=== PATIENT | female | born 1935 | race Caucasian/White ===

== ENCOUNTER → 2021-07-14 | Emergency (ER) | payer MEDICARE ==
--- NOTE | 2021-07-14 17:19 | XR ---
2 view chest x-ray HISTORY: Covid positive, cough 2 views the chest, no comparisons There is no evident airspace disease, pneumothorax, or pleural effusion. Arthropathy is noted within the shoulders. Cardiomediastinal silhouette within normal limits accounting for rotation. IMPRESSION: No acute cardiopulmonary disease. Follow-up as indicated.
[2021-07-14 19:00] LABS: ALT 32 U/L (4-34); AST 56 U/L (14-36); African American GFR (CKD) >90 (>60 ml/min/1.73 sqM); Albumin 3.4 g/dL (3.5-5.0); Alkaline Phosphatase 104 U/L (38-126); Anion Gap 9 mmol/L; Blood Urea Nitrogen 10 mg/dL (7-17); Calcium 8.4 mg/dL (8.4-10.2); Carbon Dioxide 22 mmol/L (22-30); Chloride 98 mmol/L (98-107); Glucose 121 mg/dL (74-99); Magnesium 1.7 mg/dL (1.6-2.3); Non-African American GFR(CKD) 86 (>60 ml/min/1.73 sqM); Potassium 4.8 mmol/L (3.5-5.1); Sodium 129 mmol/L (137-145); Total Bilirubin 0.6 mg/dL (0.2-1.3)
[2021-07-14 19:03] LABS: Basophils % (A) 0 %; Eosinophils % (A) 1 %; HCT 34.1 % (34.0-46.0); HGB 11.2 gm/dL (11.4-16.0); Lymphocytes # (A) 1.1 k/uL (1.0-4.8); Lymphocytes % (A) 14 %; MCH 28.1 pg (25.0-35.0); MCHC 32.7 g/dL (31.0-37.0); MCV 85.8 fL (80.0-100.0); Mean Platelet Volume 7.4; Monocytes # (A) 0.6 k/uL (0-1.0); Monocytes % (A) 8 %; Neutrophils # (A) 5.7 k/uL (1.3-7.7); Neutrophils % (A) 75 %; Platelet Count 392 k/uL (150-450); RBC 3.97 m/uL (3.80-5.40); RDW 14.5 % (11.5-15.5); WBC 7.6 k/uL (3.8-10.6)
== END ==
LOC: EC 12:00
DX: U07.1 COVID-19 (principal); R19.7 Diarrhea, unspecified; I10 Essential (primary) hypertension; E11.9 Type 2 diabetes mellitus without complications
CPT/HCPCS: 36415; 71046; 80053; 83735; 85025; 99284

== ENCOUNTER 2021-09-04 09:06 | Emergency (ER) | payer MEDICARE ==
[2021-09-04 09:19] VITALS: BP 159/77; PULSE 88; RESP 18; TEMP 97.9
[2021-09-04] MEDS ORDERED: KETOROLAC 15 MG/ML 1 ML VIAL IVP STA (09:54)
[2021-09-04] MEDS ORDERED: HYDROmorphone 0.5 MG/0.5 ML SYRINGE IVP STA ×2 (09:55→11:35)
--- NOTE | 2021-09-04 09:58 | ED ---
General Adult HPI - General Chief complaint: Extremity Problem,Nontraumatic Stated complaint: R arm & hand pain Time Seen by Provider: 09/04/21 09:25 Source: patient, family, RN notes reviewed, old records reviewed Mode of arrival: wheelchair Limitations: no limitations - History of Present Illness Initial comments: This is an 86-year-old female who presents emergency Department complaining that yesterday her right arm started hurting particularly in the wrist and the elbow area but also the upper arm. Patient states she wasn't doing anything at the time she denies any injury or trauma. Patient states that pain is severe at times. Patient states the pain does fluctuate never is gone away but it does get much less severe at times. Patient states movement definitely seems to increase the pain there is no area of erythema or swelling. Patient denies having had this experience in the past. Patient is a diabetic. Patient has no neck pain. Patient denies any chest pain difficulty breathing shortness of breath. Nursing notes indicated she had pain bilateral hands and arms however patient denied that to me. - Related Data Home Medications Medication Instructions Recorded Confirmed Acetaminophen [Tylenol] 1,000 mg PO Q4H PRN 07/14/21 07/14/21 Atorvastatin [Lipitor] 40 mg PO DAILY 07/14/21 07/14/21 Diclofenac Sodium [Voltaren] 75 mg PO BID 07/14/21 07/14/21 Glucosamine Sulfate 500 mg PO DAILY 07/14/21 07/14/21 Molnupiravir [Molnupiravir (Eua)] 800 mg PO BID 07/14/21 07/14/21 Multivitamins, Thera [Multivitamin 1 tab PO DAILY 07/14/21 07/14/21 (formulary)] Omeprazole [PriLOSEC] 20 mg PO DAILY 07/14/21 07/14/21 metFORMIN HCL ER [Glucophage XR] 500 mg PO HS 07/14/21 07/14/21 ramipriL [Ramipril] 10 mg PO DAILY 07/14/21 07/14/21 Allergies Allergy/AdvReac Type Severity Reaction Status Date / Time No Known Allergies Allergy Verified 09/04/21 09:18 Review of Systems ROS Statement: Those systems with pertinent positive or pertinent negative responses have been documented in the HPI. ROS Other: All systems not noted in ROS Statement are negative. Past Medical History Past Medical History: Diabetes Mellitus, GERD/Reflux, Hyperlipidemia, Hypertension Additional Past Medical History / Comment(s): guilian barre History of Any Multi-Drug Resistant Organisms: None Reported Past Surgical History: Hysterectomy Past Psychological History: No Psychological Hx Reported Smoking Status: Never smoker Past Alcohol Use History: None Reported Past Drug Use History: None Reported General Exam - General Exam Comments Initial Comments: GENERAL: Patient is well-developed and well-nourished. Patient is nontoxic and well- hydrated and is in moderate distress. ENT: Neck is soft and supple. No significant lymphadenopathy is noted. Oropharynx is clear. Moist mucous membranes. Neck has full range of motion without eliciting any pain. EYES: The sclera were anicteric and conjunctiva were pink and moist. Extraocular movements were intact and pupils were equal round and reactive to light. Eyelids were unremarkable. PULMONARY: Unlabored respirations. Good breath sounds bilaterally. No audible rales rhonchi or wheezing was noted. CARDIOVASCULAR: There is a regular rate and rhythm without any murmurs gallops or rubs. ABDOMEN: Soft and nontender with normal bowel sounds. SKIN: Skin is clear with no lesions or rashes and otherwise unremarkable. NEUROLOGIC: Patient is alert and oriented x3. Cranial nerves II through XII are grossly intact. Motor and sensory are also intact. Normal speech, volume and content. Symmetrical smile. Cerebellar exam grossly intact. MUSCULOSKELETAL: Patient has tenderness in the lateral and medial aspect of right wrist also in the region of the elbow medially more than laterally and mid upper arm. LYMPHATICS: No significant lymphadenopathy is noted PSYCHIATRIC: Normal psychiatric evaluation. Limitations: no limitations Course Vital Signs 09/04/21 09:13 Temperature 97.9 F Pulse Rate 88 Respiratory 18 Rate Blood Pressure 159/77 O2 Sat by Pulse 96 Oximetry Procedures - Orthopedic Splinting/Casting Injury #1 Side: right Upper Extremity Injury Location: short arm Upper Extremity Immobilizer: posterior splint Medical Decision Making - Medical Decision Making EKG shows sinus rhythm at 83 bpm TX interval is 160 QRS is 94 QT interval 350 QTC is 390. Patient's EKG shows no ST segment elevation or depression. X-ray of the elbow shows no acute abnormality. X-ray of the wrist shows a second proximal metacarpal fracture I put a splint to the patient that seemed to ease her pain considerably. [facility]. - Lab Data Result diagrams: 09/04/21 10:13 09/04/21 10:13 Lab Results 09/04/21 09/04/21 09/04/21 Range/Units 10:13 10:13 10:13 WBC 12.7 H (3.8-10.6) k/uL RBC 3.93 (3.80-5.40) m/uL Hgb 10.8 L (11.4-16.0) gm/dL Hct 33.3 L (34.0-46.0) % MCV 84.7 (80.0-100.0) fL MCH 27.4 (25.0-35.0) pg MCHC 32.4 (31.0-37.0) g/dL RDW 14.8 (11.5-15.5) % Plt Count 383 (150-450) k/uL MPV 6.7 Neutrophils % 85 % Lymphocytes % 8 % Monocytes % 5 % Eosinophils % 1 % Basophils % 0 % Neutrophils # 10.8 H (1.3-7.7) k/uL Lymphocytes # 1.0 (1.0-4.8) k/uL Monocytes # 0.6 (0-1.0) k/uL Eosinophils # 0.1 (0-0.7) k/uL Basophils # 0.0 (0-0.2) k/uL Sodium 130 L (137-145) mmol/L Potassium 4.3 (3.5-5.1) mmol/L Chloride 98 (98-107) mmol/L Carbon Dioxide 23 (22-30) mmol/L Anion Gap 9 mmol/L BUN 18 H (7-17) mg/dL Creatinine 0.63 (0.52-1.04) mg/dL Est GFR (CKD-EPI)AfAm >90 (>60 ml/min/1.73 sqM) Est GFR (CKD-EPI)NonAf 81 (>60 ml/min/1.73 sqM) Glucose 139 H (74-99) mg/dL Uric Acid 5.1 (3.7-7.4) mg/dL Calcium 9.1 (8.4-10.2) mg/dL Total Bilirubin 0.7 (0.2-1.3) mg/dL AST 122 H (14-36) U/L ALT 68 H (4-34) U/L Alkaline Phosphatase 120 (38-126) U/L Creatine Kinase 35 (30-135) U/L C-Reactive Protein 6.3 H (<1.0) mg/dL Total Protein 6.6 (6.3-8.2) g/dL Albumin 3.8 (3.5-5.0) g/dL Disposition Clinical Impression: Metacarpal bone fracture Disposition: HOME SELF-CARE Condition: Good Instructions (If sedation given, give patient instructions): Hand Fracture (ED) Additional Instructions: Patient should follow-up with orthopedics tomorrow Patient can take Tylenol and Motrin when necessary for pain Is patient prescribed a controlled substance at d/c from ED?: No Referrals: Essence Valencia DO [Doctor of Osteopathic Medicine] - 09/05/21 Time of Disposition: 14:14
[2021-09-04 10:21] LABS: Basophils % (A) 0 %; Eosinophils # (A) 0.1 k/uL (0-0.7); Eosinophils % (A) 1 %; HCT 33.3 % (34.0-46.0); HGB 10.8 gm/dL (11.4-16.0); Lymphocytes % (A) 8 %; MCH 27.4 pg (25.0-35.0); MCHC 32.4 g/dL (31.0-37.0); MCV 84.7 fL (80.0-100.0); Mean Platelet Volume 6.7; Monocytes # (A) 0.6 k/uL (0-1.0); Monocytes % (A) 5 %; Neutrophils # (A) 10.8 k/uL (1.3-7.7); Neutrophils % (A) 85 %; Platelet Count 383 k/uL (150-450); RBC 3.93 m/uL (3.80-5.40); RDW 14.8 % (11.5-15.5); WBC 12.7 k/uL (3.8-10.6)
[2021-09-04 10:32] LABS: ALT 68 U/L (4-34); AST 122 U/L (14-36); African American GFR (CKD) >90 (>60 ml/min/1.73 sqM); Albumin 3.8 g/dL (3.5-5.0); Alkaline Phosphatase 120 U/L (38-126); Anion Gap 9 mmol/L; Blood Urea Nitrogen 18 mg/dL (7-17); C Reactive Protein 6.3 mg/dL (<1.0); Calcium 9.1 mg/dL (8.4-10.2); Carbon Dioxide 23 mmol/L (22-30); Chloride 98 mmol/L (98-107); Creatine Kinase 35 U/L (30-135); Glucose 139 mg/dL (74-99); Non-African American GFR(CKD) 81 (>60 ml/min/1.73 sqM); Potassium 4.3 mmol/L (3.5-5.1); Sodium 130 mmol/L (137-145); Total Bilirubin 0.7 mg/dL (0.2-1.3); Total Protein 6.6 g/dL (6.3-8.2)
--- NOTE | 2021-09-04 11:31 | XR ---
EXAMINATION TYPE: XR wrist complete RT DATE OF EXAM: 09/04/2021 CLINICAL HISTORY: pain TECHNIQUE: Frontal, lateral and oblique images of the right wrist are obtained. COMPARISON: None. FINDINGS: Cortical lucency noted at the base of the second metacarpal may reflect fracture. Correlate clinicall y point tenderness. Advanced degenerative change first carpometacarpal joint with mild bony sclerosis and collapse. IMPRESSION: As above
--- NOTE | 2021-09-04 11:32 | XR ---
EXAMINATION TYPE: XR elbow complete RT DATE OF EXAM: 09/04/2021 CLINICAL HISTORY: pain TECHNIQUE: Frontal, lateral and oblique images of the right elbow are obtained. COMPARISON: None. FINDINGS: There is no acute fracture/dislocation evident of the elbow. Prominence of the anterior fa t pad. No evidence for pathologic posterior fat pad. Advanced degenerative change with the bony spurring and loose bodies noted. IMPRESSION: There is no acute fracture or dislocation of the elbow. ICD 10 NO FRACTURE, INITIAL EVALUATION
== END 2021-09-04 14:37 | disposition home or self-care (01) ==
LOC: EC 09:06
DX: S62.310A Displaced fracture of base of second metacarpal bone, right hand, initial encounter for closed fracture (principal); E11.9 Type 2 diabetes mellitus without complications; K21.9 Gastro-esophageal reflux disease without esophagitis; E78.5 Hyperlipidemia, unspecified; I10 Essential (primary) hypertension; Z79.84 Long term (current) use of oral hypoglycemic drugs; Z79.899 Other long term (current) drug therapy; X58.XXXA Exposure to other specified factors, initial encounter
CPT/HCPCS: 36415; 93005; 80053; 82550; 84550; 85025; 86140; 73080; 73110; 29125; 99284; 96374; 96376; 96375; J1885; J1170

== ENCOUNTER → 2021-10-17 | Outpatient (CLI) | payer MEDICARE ==
[2021-10-17 14:04] LABS: African American GFR (CKD) >90 (>60 ml/min/1.73 sqM); Blood Urea Nitrogen 10 mg/dL (7-17); Non-African American GFR(CKD) 87 (>60 ml/min/1.73 sqM)
--- NOTE | 2021-10-17 15:38 | CT ---
EXAMINATION TYPE: CT ChestAbdPelvis w con DATE OF EXAM: 10/17/2021 COMPARISON: None HISTORY: R63.[address] DLP: 1246 mGycm CONTRAST: CT scan of the chest, abdomen and pelvis is performed with Oral Contrast and with IV Contrast, patien t injected with 100ml mL of Isovue 300. CT Chest: LUNGS: The lungs are clear and free of infiltrate or atelectasis. No pulmonary nodule or mass is det ected. No pleural effusion or CT evidence of interstitial lung disease. MEDIASTINUM: Thoracic aorta is of normal caliber. The heart is not enlarged. No evidence for media stinal mass or adenopathy. HILAR STRUCTURES: No evidence for mass. No hilar adenopathy is appreciated. OTHER: No significant abnormality. CONTRAST CT ABDOMEN AND PELVIS FINDINGS: LIVER/GB: No calcified gallstones. No space occupying hepatic lesion. Biliary tree is of normal ca liber. PANCREAS: No inflammation. No distinct mass. SPLEEN: No splenic enlargement. No lesion seen. ADRENALS: No nodule. No thickening. KIDNEYS/BLADDER: No hydronephrosis. No nephrolithiasis. No distinct renal mass. BOWEL: Large anterior abdominal wall hernia to the left of midline containing multiple loops of small and large bowel. No evidence for strangulation at this time. Normal appendix. Normal bowel caliber. No inflammation. GENITAL ORGANS: No gross abnormality. LYMPH NODES: No greater than 1cm abdominal or pelvic lymph nodes are appreciated. AORTA: No significant abnormality. OSSEOUS STRUCTURES: No significant abnormality is seen. OTHER: Bilateral hip prostheses are in place resulting in streak artifact throughout the pelvis. IMPRESSION: 1. Large anterior abdominal wall hernia to the left of midline containing multiple loops of small and large bowel. No evidence for strangulation at this time.
== END | disposition home or self-care (01) ==
LOC: RADCTMAIN 13:11
PROVIDERS: ATTEND Internal Medicine
DX: K46.9 Unspecified abdominal hernia without obstruction or gangrene (principal); D64.9 Anemia, unspecified; R94.5 Abnormal results of liver function studies; R63.4 Abnormal weight loss
CPT/HCPCS: 82565; 84520; 71260; 74177; 36415; Q9967

== ENCOUNTER → 2021-11-09 | Outpatient (CLI) | payer MEDICARE ==
--- NOTE | 2021-11-09 14:17 | BD ---
EXAMINATION TYPE: Axial Bone Density DATE OF EXAM: 11/09/2021 COMPARISON: FIRST DEXA AT [facility] CLINICAL HISTORY: 86 years year old Female. ICD-10 CODE: M89.9 bone disorder Height: 68IN Weight: 190 FRAX RISK QUESTIONS: Secondary Osteoporosis: RISK FACTORS HISTORY OF: Surgery to Hip(right): YES, PT UNSURE IF SURGERY TO LEFT HIP When: PT CAN'T REMEMBER WHEN Family History of Osteoporosis: YES Active: NO Postmenopausal woman: YES Lost more than 2 inches in height since high school: YES MEDICATIONS: Additional Medications: PT UNSURE ABOUT ANY MEDS Additional History: EXAM MEASUREMENTS: Bone mineral densitometry was performed using the [employer]. Bone mineral density as measured about the Lumbar spine is: ----- L1-L4(G/cm2): 1.486 T Score Values are as follows: ----- L1: 0.6 ----- L2: 3.1 ----- L3: 3.7 ----- L4: 3.3 ----- L1-L4: 2.5 FIRST DEXA AT [facility] Bone mineral density about the L Wrist (g/cm2): 0.654 T Score values are as follows: -----Dist. R+U: 1.0 -----Prox. R+U: -0.4 -----Radius total: -0.1 IMPRESSION: Normal (Values between +1 and -1 indicate normal bone mass). Consider repeating this study in 5 year s or sooner if there is some new clinical indication. NOTE: T-SCORE=SD OF THE YOUNG ADULT MEAN.
== END | disposition home or self-care (01) ==
LOC: RADBDWWP 12:59
PROVIDERS: ATTEND Internal Medicine
DX: M89.9 Disorder of bone, unspecified (principal); Z78.0 Asymptomatic menopausal state
CPT/HCPCS: 77080

== ENCOUNTER 2022-06-27 17:56 | Inpatient (IN) | payer MEDICARE ==
[2022-06-27] MEDS ORDERED: LIDOCAINE 5% PATCH TOPICAL STA (18:30)
[2022-06-27] MEDS ORDERED: HYDROcodone/APAP 7.5-325MG 1 EACH TAB PO ONE (19:10)
--- NOTE | 2022-06-27 19:19 | XR ---
EXAMINATION TYPE: XR lumbar spine 2 or 3V DATE OF EXAM: 06/27/2022 COMPARISON: None HISTORY: Back pain TECHNIQUE: 3 view lumbar spine FINDINGS: There are 5 lumbar-type vertebral bodies. Pedicles are intact. Scoliosis is present. There is straightening of the lumbar spine in the sagittal plane. There is loss of disc height present. Spo ndylolysis is present. Follow-up MRI can be performed as clinically indicated IMPRESSION: 1. Scoliosis with degenerative disc changes.
[2022-06-27] MEDS ORDERED: KETOROLAC 15 MG/ML 1 ML VIAL IM STA (19:44)
[2022-06-27] MEDS ORDERED: MORPHINE SULFATE 2 MG/ML SYRINGE IVP ONE (20:23)
[2022-06-27] MEDS ORDERED: methylPREDNISolone SOD SUCCI 125 MG/2 ML VIAL IV STA (20:23)
[2022-06-27] MEDS ORDERED: HYDROmorphone 0.5 MG/0.5 ML SYRINGE IVP STA (20:28)
[2022-06-27 21:08] LABS: Anisocytosis Slight; Basophils % (A) 0 %; Eosinophils # (A) 0.1 k/uL (0-0.7); Eosinophils % (A) 1 %; HCT 27.9 % (34.0-46.0); HGB 8.3 gm/dL (11.4-16.0); Hypochromasia Moderate; Lymphocytes # (A) 1.7 k/uL (1.0-4.8); Lymphocytes % (A) 16 %; MCH 21.1 pg (25.0-35.0); MCHC 29.7 g/dL (31.0-37.0); MCV 70.9 fL (80.0-100.0); Mean Platelet Volume 6.6; Microcytosis Marked; Monocytes # (A) 0.6 k/uL (0-1.0); Monocytes % (A) 5 %; Neutrophils # (A) 7.9 k/uL (1.3-7.7); Neutrophils % (A) 75 %; Platelet Count 406 k/uL (150-450); RBC 3.93 m/uL (3.80-5.40); RDW 17.7 % (11.5-15.5); WBC 10.5 k/uL (3.8-10.6)
[2022-06-27 21:19] LABS: ALT 18 U/L (4-34); AST 51 U/L (14-36); African American GFR (CKD) >90 (>60 ml/min/1.73 sqM); Albumin 3.5 g/dL (3.5-5.0); Alkaline Phosphatase 117 U/L (38-126); Anion Gap 6 mmol/L; Blood Urea Nitrogen 15 mg/dL (7-17); Calcium 8.9 mg/dL (8.4-10.2); Carbon Dioxide 25 mmol/L (22-30); Chloride 96 mmol/L (98-107); Glucose 112 mg/dL (74-99); Non-African American GFR(CKD) 84 (>60 ml/min/1.73 sqM); Potassium 4.5 mmol/L (3.5-5.1); Sodium 127 mmol/L (137-145); Total Bilirubin 0.5 mg/dL (0.2-1.3)
--- NOTE | 2022-06-27 21:39 | ED ---
General Adult HPI - General Chief complaint: Back Pain/Injury Stated complaint: Back pain Time Seen by Provider: 06/27/22 18:17 Source: patient, RN notes reviewed Mode of arrival: wheelchair Limitations: no limitations - History of Present Illness Initial comments: 87-year-old female presents emergency Department with chief complaint of back pain. Patient states that it started 2-3 days ago and has progressively gotten worse. She has a history of back pain but has never experienced back pain this severe. Patient states that she is having a difficult time walking at home. Patient states that she has not taken anything at home for pain. Denies saddle anesthesia, numbness, tingling down her legs. Denies urinary retention, loss of bowel and bladder function. - Related Data Home Medications Medication Instructions Recorded Confirmed Acetaminophen [Tylenol] 1,000 mg PO Q4H PRN 07/14/21 07/14/21 Atorvastatin [Lipitor] 40 mg PO DAILY 07/14/21 07/14/21 Diclofenac Sodium [Voltaren] 75 mg PO BID 07/14/21 07/14/21 Glucosamine Sulfate 500 mg PO DAILY 07/14/21 07/14/21 Multivitamins, Thera [Multivitamin 1 tab PO DAILY 07/14/21 07/14/21 (formulary)] Omeprazole [PriLOSEC] 20 mg PO DAILY 07/14/21 07/14/21 metFORMIN HCL ER [Glucophage XR] 500 mg PO HS 07/14/21 07/14/21 ramipriL [Ramipril] 10 mg PO DAILY 07/14/21 07/14/21 Allergies Allergy/AdvReac Type Severity Reaction Status Date / Time No Known Allergies Allergy Verified 06/27/22 22:23 Review of Systems ROS Statement: Those systems with pertinent positive or pertinent negative responses have been documented in the HPI. ROS Other: All systems not noted in ROS Statement are negative. Past Medical History Past Medical History: Diabetes Mellitus, GERD/Reflux, Hyperlipidemia, Hypertension Additional Past Medical History / Comment(s): guilian barre History of Any Multi-Drug Resistant Organisms: None Reported Past Surgical History: Hysterectomy Past Psychological History: No Psychological Hx Reported Smoking Status: Never smoker Past Alcohol Use History: None Reported Past Drug Use History: None Reported General Exam Limitations: no limitations General appearance: alert, in no apparent distress Head exam: Present: atraumatic, normocephalic, normal inspection Eye exam: Present: normal appearance ENT exam: Present: normal exam, mucous membranes moist Neck exam: Present: normal inspection, full ROM. Absent: tenderness, meningismus, lymphadenopathy Respiratory exam: Present: normal lung sounds bilaterally. Absent: respiratory distress, wheezes, rales, rhonchi, stridor Cardiovascular Exam: Present: regular rate, normal rhythm, normal heart sounds. Absent: systolic murmur, diastolic murmur, rubs, gallop, clicks GI/Abdominal exam: Present: soft, normal bowel sounds. Absent: distended, tenderness, guarding, rebound, rigid Extremities exam: Present: normal inspection, full ROM, normal capillary refill. Absent: tenderness, pedal edema, joint swelling, calf tenderness Back exam: Present: normal inspection, tenderness (Tenderness palpation over the lumbar spine), paraspinal tenderness, vertebral tenderness. Absent: CVA tenderness (R), CVA tenderness (L) Neurological exam: Present: alert, oriented X3 Psychiatric exam: Present: normal affect, normal mood Skin exam: Present: warm, dry, intact, normal color. Absent: rash Course Vital Signs 06/27/22 06/27/22 06/27/22 17:57 20:13 21:20 Temperature 98.2 F 98.2 F Pulse Rate 82 84 81 Respiratory 18 18 18 Rate Blood Pressure 180/85 179/82 182/78 O2 Sat by Pulse 97 98 97 Oximetry 06/27/22 06/27/22 06/28/22 22:21 22:50 00:00 Temperature Pulse Rate 82 84 80 Respiratory 14 18 18 Rate Blood Pressure 180/74 O2 Sat by Pulse 95 98 97 Oximetry Medical Decision Making - Medical Decision Making Was pt. sent in by a medical professional or institution (, PA, TOBACCO STEMMER MACHINE, urgent care, hospital, or assisted...) When possible be specific @ -No Did you speak to anyone other than the patient for history (EMS, parent, family, police, friend...)? What history was obtained from this source @ -No Did you review nursing and triage notes (agree or disagree)? Why? @ -I reviewed and agree with nursing and triage notes Were old charts reviewed (outside hosp., previous admission, EMS record, old EKG, old radiological studies, urgent care reports/EKG's, assisted records)? Report findings @ -Lab values from prior visits were reviewed and compared to the test obtained today Differential Diagnosis (chest pain, altered mental status, abdominal pain women, abdominal pain men, vaginal bleeding, weakness, fever, dyspnea, syncope, headache, dizziness, GI bleed, back pain, seizure, CVA, palpatations, mental health, musculoskeletal)? @ -Differential Musculoskeletal Muscular strain, contusion, ligament sprain, fracture, arthritis, septic arth ritis, bursitis, cellulitis, muscle spasm, nerve compression, DVT, arterial occlusion, herpes zoster, electrolyte abnormality, tumor.... This is not meant to be in all inclusive list EKG interpreted by me (3pts min.). @ -None X-rays interpreted by me (1pt min.). @ -X-ray lumbar spine showed scoliosis with degenerative disc changes CT interpreted by me (1pt min.). @ -None done U/S interpreted by me (1pt. min.). @ -None done What testing was considered but not performed or refused? (CT, X-rays, U/S, labs)? Why? @ -None What meds were considered but not given or refused? Why? @ -None Did you discuss the management of the patient with other professionals (professionals i.e. , PA, TOBAC[employer] STEMMER MACHINE, lab, RT, psych nurse, forensic social worker, business analytics specialist, teacher, signals officer, test case developer)? Give summary @ -Yes, case was discussed with Dr. Morin who is accepting of the admission Was smoking cessation discussed for >3mins.? @ -No Was critical care preformed (if so, how long)? @ -No Were there social determinants of health that impacted care today? How? (Homelessness, low income, unemployed, alcoholism, drug addiction, transportation, low edu. Level, literacy, decrease access to med. care, [facility], rehab)? @ -No Was there de-escalation of care discussed even if they declined (Discuss DNR or withdrawal of care, Hospice)? DNR status @ -No What co-morbidities impacted this encounter? (DM, HTN, Smoking, COPD, CAD, Cancer, CVA, ARF, Chemo, Hep., AIDS, mental health diagnosis, sleep apnea, morbid obesity)? @ -None Was patient admitted / discharged? Hospital course, mention meds given and route, prescriptions, significant lab abnormalities, going to OR and other pertinent info. @ -Admitted. Patient presented to emergency department chief complaint of low back pain worsening over the past 2 days. Patient has a history of chronic back pain. X-ray was obtained which showed scoliosis with degenerative disc emanuel ges. Patient was given norco 7.5 and a Toradol shot. She stated that this did not help with her pain. IV was started and labs were obtained. Patient was then given 0.5 mg of Dilaudid. Upon reevaluation patient stated that her pain had improved. UA was obtained which showed positive nitrates, large leukocytes, moderate blood; CBC was similar to previous lab work; CMP showed sodium 127 which seems to be chronic issue. The case was discussed with who is accepting of the admission for pain management and treatment of urinary tract infection. Case discussed with my attending, Dr. Araujo Undiagnosed new problem with uncertain prognosis? @ [N] Drug Therapy requiring intensive monitoring for toxicity (Heparin, Nitro, Insu taylor, Cardizem)? @ [N] Were any procedures done? @ [N] Diagnosis/symptom? @ -Back pain] Acute, or Chronic, or Acute on Chronic? @ Acute] Uncomplicated (without systemic symptoms) or Complicated (systemic symptoms)? @ Uncomplicated] Side effects of treatment? @ [N] Exacerbation, Progression, or Severe Exacerbation? @ [N] Poses a threat to life or bodily function? How? (Chest pain, [place], PR, pneumonia, PE, COPD, DKA, ARF, appy, cholecystitis, CVA, Diverticulitis, Homicidal, Suicidal, threat to staff... and all critical care pts) @ - - Lab Data Result diagrams: 06/27/22 20:50 06/27/22 20:50 Lab Results 06/27/22 06/27/22 06/27/22 Range/Units 20:50 20:50 22:00 WBC 10.5 (3.8-10.6) k/uL RBC 3.93 (3.80-5.40) m/uL Hgb 8.3 L (11.4-16.0) gm/dL Hct 27.9 L (34.0-46.0) % MCV 70.9 L (80.0-100.0) fL MCH 21.1 L (25.0-35.0) pg MCHC 29.7 L (31.0-37.0) g/dL RDW 17.7 H (11.5-15.5) % Plt Count 406 (150-450) k/uL MPV 6.6 Neutrophils % 75 % Lymphocytes % 16 % Monocytes % 5 % Eosinophils % 1 % Basophils % 0 % Neutrophils # 7.9 H (1.3-7.7) k/uL Lymphocytes # 1.7 (1.0-4.8) k/uL Monocytes # 0.6 (0-1.0) k/uL Eosinophils # 0.1 (0-0.7) k/uL Basophils # 0.0 (0-0.2) k/uL Hypochromasia Moderate Anisocytosis Slight Microcytosis Marked Sodium 127 L (137-145) mmol/L Potassium 4.5 (3.5-5.1) mmol/L Chloride 96 L (98-107) mmol/L Carbon Dioxide 25 (22-30) mmol/L Anion Gap 6 mmol/L BUN 15 (7-17) mg/dL Creatinine 0.55 (0.52-1.04) mg/dL Est GFR (CKD-EPI)AfAm >90 (>60 ml/min/1.73 sqM) Est GFR (CKD-EPI)NonAf 84 (>60 ml/min/1.73 sqM) Glucose 112 H (74-99) mg/dL Calcium 8.9 (8.4-10.2) mg/dL Total Bilirubin 0.5 (0.2-1.3) mg/dL AST 51 H (14-36) U/L ALT 18 (4-34) U/L Alkaline Phosphatase 117 (38-126) U/L Total Protein 6.0 L (6.3-8.2) g/dL Albumin 3.5 (3.5-5.0) g/dL Urine Color Yellow Urine Appearance Turbid H (Clear) Urine pH 5.5 (5.0-8.0) Ur Specific [place] 1.023 (1.001-1.035) Urine Protein Trace H (Negative) Urine Glucose (UA) Negative (Negative) Urine Ketones 1+ H (Negative) Urine Blood Moderate H (Negative) Urine Nitrite Positive H (Negative) Urine Bilirubin Negative (Negative) Urine Urobilinogen <2.0 (<2.0) mg/dL Ur Leukocyte Esterase Large H (Negative) Urine RBC 46 H (0-5) /hpf Urine WBC >182 H (0-5) /hpf Urine WBC Clumps Occasional H (None) /hpf Ur Squamous Epith Cells 7 H (0-4) /hpf Urine Bacteria Many H (None) /hpf Hyaline Casts 12 H (0-2) /lpf Urine Mucus Few H (None) /hpf Disposition Clinical Impression: Urinary tract infection, Low back pain Disposition: ADMITTED IP TO THIS HOSP Condition: Stable Is patient prescribed a controlled substance at d/c from ED?: No Referrals: Santiago Green MD [Primary Care Provider] - 1-2 days Time of Disposition: 23:26
[2022-06-27] MEDS ORDERED: SODIUM CHLORIDE 0.9% 1,000 ML IV ONE (22:34)
[2022-06-27 22:43] LABS: Appearance,Urine Turbid (Clear); Bacteria,Urine Many /hpf; Bilirubin,Urine Negative (Negative); Blood,Urine Moderate (Negative); Color,Urine Yellow; Glucose,Urine (UA) Negative (Negative); Hyaline Casts,Urine 12 /lpf (0-2); Ketones,Urine 1+ (Negative); Leukocyte Esterase,Urine Large (Negative); Mucus,Urine Few /hpf; Nitrite,Urine Positive (Negative); PH, Urine 5.5 (5.0-8.0); Protein,Urine Trace (Negative); RBC,Urine 46 /hpf (0-5); Specific Gravity,Urine 1.023 (1.001-1.035); Squamous Epithelial Cell,Urine 7 /hpf (0-4); Urobilinogen,Urine <2.0 mg/dL (<2.0); WBC,Urine >182 /hpf (0-5)
[2022-06-27] MEDS ORDERED: ONDANSETRON 4 MG/2 ML VIAL IVP PRN (23:16)
[2022-06-27] MEDS ORDERED: HYDROmorphone 0.5 MG/0.5 ML SYRINGE IVP PRN (23:16)
[2022-06-27] MEDS ORDERED: NALOXONE 0.4 MG/ML 1 ML VIAL IV PRN (23:16)
[2022-06-27] MEDS ORDERED: ACETAMINOPHEN TAB 325 MG TAB PO PRN (23:16)
[2022-06-28] MEDS ORDERED: hydrALAZINE HCL 20 MG/ML 1 ML VIAL IVP STA (00:04)
[2022-06-28] MEDS: SODIUM CHLORIDE 0.9% 1,000 ML IV SCH ×2 (02:48→17:37)
--- NOTE | 2022-06-28 04:52 | P.HPIM ---
History of Present Illness H&P Date: 06/27/22 Chief Complaint: right low back pain 87 year old female with hypertension and DM patient coming in with 3 days history of right low back pain , no associated focal neuro deficits, no numbness no tingling in lower extremities , no saddle numbness. no urinary retention , patient has a colostomy due to history of colorectal cancer. today she started experiencing difficulty walking due to generalized weakness. she also started experiencing difficulty urinating denies any falls or injuries, denies any fever, chills, nausea or vomiting . Review of Systems Pertinent positives as noted in HPI. All other systems were reviewed and are neg ative Past Medical History Past Medical History: Diabetes Mellitus, GERD/Reflux, Hyperlipidemia, Hypertension Additional Past Medical History / Comment(s): k[place]ber [place] History of Any Multi-Drug Resistant Organisms: None Reported Past Surgical History: Hysterectomy Past Psychological History: No Psychological Hx Reported Smoking Status: Never smoker Past Alcohol Use History: None Reported Past Drug Use History: None Reported Medications and Allergies Home Medications Medication Instructions Recorded Confirmed Type Acetaminophen [Tylenol] 1,000 mg PO Q4H PRN 07/14/21 06/27/22 History Atorvastatin [Lipitor] 40 mg PO DAILY 07/14/21 06/27/22 History Diclofenac Sodium [Voltaren] 75 mg PO BID 07/14/21 06/27/22 History Glucosamine Sulfate 500 mg PO DAILY 07/14/21 06/27/22 History Multivitamins, Thera [Multivitamin 1 tab PO DAILY 07/14/21 06/27/22 History (formulary)] Omeprazole [PriLOSEC] 20 mg PO DAILY 07/14/21 06/27/22 History metFORMIN HCL ER [Glucophage XR] 500 mg PO DAILY 07/14/21 06/27/22 History ramipriL [Ramipril] 10 mg PO DAILY 07/14/21 06/27/22 History Allergies Allergy/AdvReac Type Severity Reaction Status Date / Time No Known Allergies Allergy Verified 06/27/22 22:23 Physical Exam Vitals: Vital Signs Temp Pulse Pulse Resp BP BP Pulse Ox 06/28/22 01:06 97.5 F L 106 H 16 194/71 97 06/28/22 00:45 98.6 F 79 18 148/82 97 06/28/22 00:37 147/94 05/10/23 00:00 80 18 97 06/27/22 22:50 84 18 180/74 98 06/27/22 22:21 82 14 95 06/27/22 21:20 81 18 182/78 97 06/27/22 20:13 98.2 F 84 18 179/82 98 06/27/22 17:57 98.2 F 82 18 180/85 97 Intake and Output 06/27/22 06/27/22 06/28/22 14:59 22:59 06:59 Other: Weight 88.451 kg Constitutional: No acute distress, conversant, pleasant Eyes: Anicteric sclerae, moist conjunctiva, Pupils equal round reactive to light ENMT: NC/AT Oropharynx clear, no erythema, or exudates Neck: Supple, no masses, or JVD No carotid bruits No thyromegaly Lungs: Clear to auscultation Clear to percussion Normal respiratory effort, no accessory muscle use Cardiovascular: Heart regular in rate and rhythm, No murmurs, gallops, or rubs No peripheral edema Abdominal: Soft Nontender, no guarding, rebound or rigidity Abdomen moving with respiration Normoactive bowel sounds No hepatomegaly, No splenomegaly No palpable mass colostomy bag in place functional no bleeding Extremities: No digital cyanosis No clubbing Pedal pulses intact and symmetrical Radial pulses intact and symmetrical No calf tenderness Psychiatric: Alert and oriented to person, place and time Appropriate affect Neuro Muscles Strength 4/5 in all 4 extremities Sensation to light touch grossly present throughout Cranial nerves II-XII grossly intact Lymphatics: no palpable cervical or supraclavicular lymph nodes Results CBC & Chem 7: 06/27/22 20:50 06/27/22 20:50 Labs: Abnormal Lab Results - Last 24 Hours (Table) 06/27/22 06/27/22 06/27/22 Range/Units 20:50 20:50 22:00 Hgb 8.3 L (11.4-16.0) gm/dL Hct 27.9 L (34.0-46.0) % MCV 70.9 L (80.0-100.0) fL MCH 21.1 L (25.0-35.0) pg MCHC 29.7 L (31.0-37.0) g/dL RDW 17.7 H (11.5-15.5) % Neutrophils # 7.9 H (1.3-7.7) k/uL Sodium 127 L (137-145) mmol/L Chloride 96 L (98-107) mmol/L Glucose 112 H (74-99) mg/dL AST 51 H (14-36) U/L Total Protein 6.0 L (6.3-8.2) g/dL Urine Appearance Turbid H (Clear) Urine Protein Trace H (Negative) Urine Ketones 1+ H (Negative) Urine Blood Moderate H (Negative) Urine Nitrite Positive H (Negative) Ur Leukocyte Esterase Large H (Negative) Urine RBC 46 H (0-5) /hpf Urine WBC >182 H (0-5) /hpf Urine WBC Clumps Occasional H (None) /hpf Ur Squamous Epith Cells 7 H (0-4) /hpf Urine Bacteria Many H (None) /hpf Hyaline Casts 12 H (0-2) /lpf Urine Mucus Few H (None) /hpf Assessment and Plan Assessment: 87 year old female presented with generlized weakness and difficulty ambulating, I discussed the case with eD doc, she was found to have UTI , I accepted the admission for IV antibiotics for UTI , with anticipated length of stay < 2 midnights acute simple cystitis rocephine IVPB 1 gm daily X 3 days IVF hydration with normal saline follow up cultures fall precautions PT eval pain control with tylenol , discontinue narcotics blood work showed WBC 10.5 chronic conditions hyeprtension , resume lisinopril chronic anemia hgb 8.3 denies bleeding not on blood thinners hyponatremia IVF hydration with normal saline follow up Na level , currently 127 DM insuline sliding scale hyperlipidemia resume statin dvt ppx heparin sc tid 5000 units full code
[2022-06-28 07:35] LABS: Glucose,Whole Blood 177 mg/dL (70-110)
[2022-06-28] MEDS: PANTOPRAZOLE 40 MG TABLET PO SCH (09:05)
[2022-06-28] MEDS: ATORVASTATIN 40 MG TAB PO SCH (09:05)
[2022-06-28] MEDS: lisinopriL 20 MG TAB PO SCH (09:05)
[2022-06-28] MEDS: ACETAMINOPHEN TAB 500 MG TAB PO PRN ×4 (09:06→23:23)
[2022-06-28] MEDS: INSULIN ASPART (NovoLOG) 100 UNIT/ML VIAL SQ SCH ×4 (09:06→20:59)
--- NOTE | 2022-06-28 09:06 | CT ---
EXAMINATION TYPE: CT abdomen pelvis wo con CT DLP: 1037.8 mGycm, Automated exposure control for dose reduction was used. DATE OF EXAM: 06/28/2022 7:30 AM COMPARISON: CT chest abdomen and pelvis 10/17/2021, lumbar spine radiograph 06/27/2022. CLINICAL INDICATION:Female, 87 years old with history of kidney stones; back pain, hematuria TECHNIQUE: Standard CT of the abdomen and pelvis without IV or oral contrast. Lack of IV or oral co ntrast limits evaluation of solid and hollow organ viscera. Coronal and sagittal reformats were perfo rmed. FINDINGS: LOWER CHEST: Posterior dependent subsegmental atelectasis is noted. Mild prominence of the heart. No pericardial effusion. ABDOMEN LIVER: Unremarkable noncontrast appearance. GALLBLADDER AND BILE DUCTS: Mildly distended gallbladder. No biliary duct dilatation. PANCREAS: Unremarkable noncontrast appearance. SPLEEN: Unremarkable noncontrast appearance. ADRENAL GLANDS: Unremarkable noncontrast appearance. KIDNEYS AND URETERS: No evidence of hydronephrosis or renal calculus. PELVIS BLADDER: Mildly distended. REPRODUCTIVE: No gross abnormality. ABDOMEN & PELVIS STOMACH AND BOWEL: No focal wall thickening or surrounding inflammatory changes. No evidence of bowel obstruction. The stomach, small bowel, colon demonstrated within the large left abdominal wall herni a. PERITONEUM: No evidence of pneumoperitoneum or free fluid. VASCULATURE: Mild atherosclerotic calcifications are present throughout the abdominal aorta and its b ranches. No evidence of aortic aneurysm. MUSCULOSKELETAL: Acute nondisplaced fracture involving the superior and left lateral endplate of the T12 vertebral body (series 6, image 70). Moderate disc degeneration changes are present throughout th e thoracolumbar spine.. Postsurgical changes from bilateral total hip arthroplasty. This creates stre aky artifact which limits evaluation. There is a 5.4 x 3.0 cm lateral right thigh fluid collection wh ich may represent a seroma versus other etiologies. LYMPH NODES: Stable large 4.3 x 2.6 cm right external iliac chain lymph node. SOFT TISSUE/ABDOMINAL WALL: There is redemonstration of large left anterior abdominal wall hernia con taining the stomach, nondilated small and large bowel with an ostomy. IMPRESSION: 1. No evidence for obstructive uropathy or nephrolithiasis. 2. Acute nondisplaced fracture involving the superior and left lateral endplate of the T12 vertebral body. 3. Stable enlarged 2.6 cm short axis right external iliac chain lymph node. 4. Redemonstration of large left anterior abdominal wall hernia containing stomach, nonobstructive sm all and large bowel. 5. Lateral right thigh soft tissue fluid collection which may represent seroma versus other etiologie s. Clinical correlation is recommended.
[2022-06-28 11:28] LABS: Glucose,Whole Blood 179 mg/dL (70-110)
[2022-06-28 12:27] LABS: African American GFR (CKD) >90 (>60 ml/min/1.73 sqM); Anion Gap 9 mmol/L; Blood Urea Nitrogen 16 mg/dL (7-17); Calcium 8.7 mg/dL (8.4-10.2); Carbon Dioxide 21 mmol/L (22-30); Chloride 97 mmol/L (98-107); Glucose 153 mg/dL (74-99); Non-African American GFR(CKD) 85 (>60 ml/min/1.73 sqM); Potassium 4.2 mmol/L (3.5-5.1); Sodium 127 mmol/L (137-145)
--- NOTE | 2022-06-28 14:09 | US ---
EXAMINATION TYPE: US bladder DATE OF EXAM: 06/28/2022 COMPARISON: CT abdomen and pelvis 06/28/2022 CLINICAL INDICATION: Female, 87 years old with history of hematuria, RN reports pt urinating straight blood; gross hematuria seen this am TECHNIQUE: Multiple sonographic images of the bladder are obtained. FINDINGS: [employer]IST NOTES: Dependant debris seen, otherwise no obvious masses or wall thickening Color Doppler performed to assess ureteral jets. Bilateral Jets seen: no No obvious masses or wall thickening identified. Layering debris demonstrated within the bladder. No internal color flow. IMPRESSION: Nonspecific layering debris within urinary bladder. Correlate with urinalysis.
[2022-06-28 17:14] LABS: Glucose,Whole Blood 157 mg/dL (70-110)
--- NOTE | 2022-06-28 19:11 | P.PN ---
Subjective Progress Note Date: 06/28/22 Hospital course: Patient is a very pleasant 87-year-old female with a past medical history of hypertension, hyperlipidemia, diabetes mellitus, and colon cancer status post bowel resection and colostomy placement. She presented to the emergency department on 06/27/22 with a chief complaint of lower back pain. Patient underwent full evaluation in the emergency department. Labs completed and reviewed. CBC showing microcytic anemia with hemoglobin of 8.3. BMP revealing hyponatremia with sodium 127, hypochloremia with chloride of 96, and mild hyperglycemia with glucose of 112. Liver profile showing slightly elevated AST of 51. Urinalysis was contaminated but concerning for infection with greater than 182 WBCs, blood, nitrites, and RBCs. X-ray completed of lumbar spine showi ng scoliosis with degenerative disc changes. CT abdomen and pelvis also completed showing no evidence of obstructive uropathy or nephrolith the bases, but did reveal a stable enlarged 2.6 cm right external iliac chain lymph node, redemonstration of large left anterior abdominal wall hernia, lateral right thigh fluid collection, and in acute nondisplaced fracture involving the superior and left lateral endplate of the T12 vertebral body. Patient was admitted under our services at this time. Physical exam: Vital signs reviewed and stable. General: Nontoxic, no distress and appears stated age. Derm: Skin warm and dry, normal coloration for ethnicity. Head: Atraumatic, normocephalic and symmetric. Eyes: EOMs intact, no lid lag, and anicteric sclera Mouth: no lip lesions, mucus membranes moist Cardiovascular: regular rate and rhythm with normal S1S2, systolic murmur, positive posterior tibial pulses bilaterally, and cap refill < 2 seconds. Lungs: Respirations even, regular, and unlabored on room air. Lungs CTA bilaterally, no rhonchi, no rales, no wheezing, and no accessory muscle usage. Abdominal: soft, nontender to palpation, no guarding, no appreciable organomegaly Ext: ROM intact. No gross muscle atrophy, no edema, no contractures Neuro: Speech clear, face symmetrical and CN II-XII grossly intact with no noted focal neuro deficits Psych: Alert and oriented to person, place and situation. Appropriate and pleasant affect. Assessment and Plan of Care: Intractable lower back pain, acute nondisplaced T12 fracture Acute cystitis with Hematuria Hypochloremic hyponatremia Microcytic anemia, chronic - Labs completed and reviewed. CBC showing microcytic anemia with hemoglobin of 8.3. BMP revealing hyponatremia with sodium 127, hypochloremia with chloride of 96, and mild hyperglycemia with glucose of 112. Liver profile showing slightly elevated AST of 51. Urinalysis was contaminated but concerning for infection with greater than 182 WBCs, blood, nitrites, and RBCs. -Repeat BMP completed this morning showing hyponatremia unchanged with sodium of 127, normal saline infusion increased from 75 mL per hour 200 mL per hour at this time and will repeat BMP with a.m. labs to continue to monitor closely for improvement. -Urinalysis was contaminated but concerning for infection with greater than 182 WBCs, blood, nitrites, and RBCs. -CT abdomen and pelvis also completed in radiology report reviewed showing no evidence of obstructive uropathy or nephrolith the bases, but did reveal a stable enlarged 2.6 cm right external iliac chain lymph node, redemonstration of large left anterior abdominal wall hernia, lateral right thigh fluid collection, and in acute nondisplaced fracture involving the superior and left lateral endplate of the T12 vertebral body. -Urology consulted -Order placed for bladder ultrasound, bladder management with close monitoring o f post void residuals. -Orthospine surgery to be consulted for T12 fracture. -Fall precautions. CODE STATUS: Full code DVT prophylaxis: SCDs Discussed with: Patient and RN Anticipated discharge date: Clinical course to determine Anticipated discharge place: Home Patient was seen independently by Nurse Pracitioner. This document was prepared using [employer] dictation software. Please allow for errors in behavioral analyst, while rare they do occur. This patient was seen independently by Aden Mendoza NP, I agree with documentation as above with the following additions: None. Objective - Vital Signs Vital signs: Vital Signs Temp 97.9 F 06/28/22 07:35 Pulse 93 06/28/22 07:35 Resp 18 06/28/22 07:35 BP 192/65 06/28/22 07:35 Pulse Ox 96 06/28/22 07:35 FiO2 Intake & Output 06/27/22 06/28/22 06/28/22 18:59 06:59 18:59 Intake Total 880 Output Total 400 Balance 480 Weight 88.451 kg 88.451 kg Intake: Intake, IV Titration 400 Amount Sodium Chloride 0.9% 1, 400 000 ml @ 75 mls/hr IV . [id number] [facility] Rx#:[id number] Oral 480 Output: Urine 400 Other: Voiding Method Bedside Commode # Voids 1 - Labs CBC & Chem 7: 07/01/22 11:03 07/01/22 11:03 Labs: Abnormal Lab Results - Last 24 Hours (Table) 06/27/22 06/27/22 06/27/22 Range/Units 20:50 20:50 22:00 Hgb 8.3 L (11.4-16.0) gm/dL Hct 27.9 L (34.0-46.0) % MCV 70.9 L (80.0-100.0) fL MCH 21.1 L (25.0-35.0) pg MCHC 29.7 L (31.0-37.0) g/dL RDW 17.7 H (11.5-15.5) % Neutrophils # 7.9 H (1.3-7.7) k/uL Sodium 127 L (137-145) mmol/L Chloride 96 L (98-107) mmol/L Glucose 112 H (74-99) mg/dL POC Glucose (mg/dL) (70-110) mg/dL AST 51 H (14-36) U/L Total Protein 6.0 L (6.3-8.2) g/dL Urine Appearance Turbid H (Clear) Urine Protein Trace H (Negative) Urine Ketones 1+ H (Negative) Urine Blood Moderate H (Negative) Urine Nitrite Positive H (Negative) Ur Leukocyte Esterase Large H (Negative) Urine RBC 46 H (0-5) /hpf Urine WBC >182 H (0-5) /hpf Urine WBC Clumps Occasional H (None) /hpf Ur Squamous Epith Cells 7 H (0-4) /hpf Urine Bacteria Many H (None) /hpf Hyaline Casts 12 H (0-2) /lpf Urine Mucus Few H (None) /hpf 06/28/22 Range/Units 07:34 Hgb (11.4-16.0) gm/dL Hct (34.0-46.0) % MCV (80.0-100.0) fL MCH (25.0-35.0) pg MCHC (31.0-37.0) g/dL RDW (11.5-15.5) % Neutrophils # (1.3-7.7) k/uL Sodium (137-145) mmol/L Chloride (98-107) mmol/L Glucose (74-99) mg/dL POC Glucose (mg/dL) 177 H (70-110) mg/dL AST (14-36) U/L Total Protein (6.3-8.2) g/dL Urine Appearance (Clear) Urine Protein (Negative) Urine Ketones (Negative) Urine Blood (Negative) Urine Nitrite (Negative) Ur Leukocyte Esterase (Negative) Urine RBC (0-5) /hpf Urine WBC (0-5) /hpf Urine WBC Clumps (None) /hpf Ur Squamous Epith Cells (0-4) /hpf Urine Bacteria (None) /hpf Hyaline Casts (0-2) /lpf Urine Mucus (None) /hpf
[2022-06-28 20:42] LABS: Glucose,Whole Blood 148 mg/dL (70-110)
[2022-06-29] MEDS: ACETAMINOPHEN TAB 500 MG TAB PO PRN ×3 (03:35→21:27)
[2022-06-29] MEDS: SODIUM CHLORIDE 0.9% 1,000 ML IV SCH ×2 (05:02→16:56)
--- NOTE | 2022-06-29 06:07 | P.GSCN ---
History of Present Illness Consult date: 06/28/22 History of present illness: [age]-year-old female came to the hospital back pain. On CAT scan she has endplate fractures of T12. She also found to have an apparent urinary tract infection with hematuria. We are asked see the patient. Patient had a computed tomography scan that did not show any other urologic abnormalities.There is no history of recurrent utis. No history of stones or previous hematuria Review of Systems All systems: negative - Constitutional Denies fever, Denies weight loss - EENT Eyes: denies blurred vision Ears, nose, mouth and throat: Denies dysphagia - Cardiovascular Denies chest pain, Denies shortness of breath - Respiratory Denies cough, Denies 7 - Gastrointestinal Reports as per HPI - Genitourinary Genitourinary: Denies dysuria, Denies hematuria - Integumentary Denies rash, Denies unusual bruising - Neurological Denies headaches, Denies syncope - Hematologic/Lymphatic Denies easy bleeding, Denies easy bruising Past Medical History Past Medical History: Diabetes Mellitus, GERD/Reflux, Hyperlipidemia, Hypertension Additional Past Medical History / Comment(s): guilian barre History of Any Multi-Drug Resistant Organisms: None Reported Past Surgical History: Hysterectomy Additional Past Surgical History / Comment(s): colostomy Past Psychological History: No Psychological Hx Reported Smoking Status: Never smoker Past Alcohol Use History: None Reported Past Drug Use History: None Reported Medications and Allergies Home Medications Medication Instructions Recorded Confirmed Type Acetaminophen [Tylenol] 1,000 mg PO Q4H PRN 07/14/21 06/27/22 History Atorvastatin [Lipitor] 40 mg PO DAILY 07/14/21 06/27/22 History Diclofenac Sodium [Voltaren] 75 mg PO BID 07/14/21 06/27/22 History Glucosamine Sulfate 500 mg PO DAILY 07/14/21 06/27/22 History Multivitamins, Thera [Multivitamin 1 tab PO DAILY 07/14/21 06/27/22 History (formulary)] Omeprazole [PriLOSEC] 20 mg PO DAILY 07/14/21 06/27/22 History metFORMIN HCL ER [Glucophage XR] 500 mg PO DAILY 07/14/21 06/27/22 History ramipriL [Ramipril] 10 mg PO DAILY 07/14/21 06/27/22 History Allergies Allergy/AdvReac Type Severity Reaction Status Date / Time No Known Allergies Allergy Verified 06/27/22 22:23 Surgical - Exam Vital Signs Temp Pulse Resp BP Pulse Ox 98.2 F 82 18 180/85 97 06/27/22 17:57 06/27/22 17:57 06/27/22 17:57 06/27/22 17:57 06/27/22 17:57 - General well developed, well nourished, no distress - Eyes normal ocular movement, no icteric - ENT no hearing loss, no congestion - Neck no masses, trachea midline - Respiratory normal respiratory effort, clear to auscultation - Abdomen Abdomen: soft, non tender, no guarding, no rigid, no rebound - Integumentary no rash, no abnormal pigmentation - Neurologic no disoriented, no combative - Psychiatric oriented to time, oriented to person, oriented to place, speech is normal, memory intact Results - Labs 06/27/22 20:50 06/28/22 12:00 Abnormal Lab Results - Last 24 Hours (Table) 06/27/22 06/27/22 06/27/22 Range/Units 20:50 20:50 22:00 Hgb 8.3 L (11.4-16.0) gm/dL Hct 27.9 L (34.0-46.0) % MCV 70.9 L (80.0-100.0) fL MCH 21.1 L (25.0-35.0) pg MCHC 29.7 L (31.0-37.0) g/dL RDW 17.7 H (11.5-15.5) % Neutrophils # 7.9 H (1.3-7.7) k/uL Sodium 127 L (137-145) mmol/L Chloride 96 L (98-107) mmol/L Carbon Dioxide (22-30) mmol/L Glucose 112 H (74-99) mg/dL POC Glucose (mg/dL) (70-110) mg/dL AST 51 H (14-36) U/L Total Protein 6.0 L (6.3-8.2) g/dL Urine Appearance Turbid H (Clear) Urine Protein Trace H (Negative) Urine Ketones 1+ H (Negative) Urine Blood Moderate H (Negative) Urine Nitrite Positive H (Negative) Ur Leukocyte Esterase Large H (Negative) Urine RBC 46 H (0-5) /hpf Urine WBC >182 H (0-5) /hpf Urine WBC Clumps Occasional H (None) /hpf Ur Squamous Epith Cells 7 H (0-4) /hpf Urine Bacteria Many H (None) /hpf Hyaline Casts 12 H (0-2) /lpf Urine Mucus Few H (None) /hpf 06/28/22 06/28/22 06/28/22 Range/Units 07:34 11:25 12:00 Hgb (11.4-16.0) gm/dL Hct (34.0-46.0) % MCV (80.0-100.0) fL MCH (25.0-35.0) pg MCHC (31.0-37.0) g/dL RDW (11.5-15.5) % Neutrophils # (1.3-7.7) k/uL Sodium 127 L (137-145) mmol/L Chloride 97 L (98-107) mmol/L Carbon Dioxide 21 L (22-30) mmol/L Glucose 153 H (74-99) mg/dL POC Glucose (mg/dL) 177 H 179 H (70-110) mg/dL AST (14-36) U/L Total Protein (6.3-8.2) g/dL Urine Appearance (Clear) Urine Protein (Negative) Urine Ketones (Negative) Urine Blood (Negative) Urine Nitrite (Negative) Ur Leukocyte Esterase (Negative) Urine RBC (0-5) /hpf Urine WBC (0-5) /hpf Urine WBC Clumps (None) /hpf Ur Squamous Epith Cells (0-4) /hpf Urine Bacteria (None) /hpf Hyaline Casts (0-2) /lpf Urine Mucus (None) /hpf Diabetes panel 06/27/22 06/28/22 Range/Units 20:50 12:00 Sodium 127 L 127 L (137-145) mmol/L Potassium 4.5 4.2 (3.5-5.1) mmol/L Chloride 96 L 97 L (98-107) mmol/L Carbon Dioxide 25 21 L (22-30) mmol/L BUN 15 16 (7-17) mg/dL Creatinine 0.55 0.53 (0.52-1.04) mg/dL Glucose 112 H 153 H (74-99) mg/dL Calcium 8.9 8.7 (8.4-10.2) mg/dL AST 51 H (14-36) U/L ALT 18 (4-34) U/L Alkaline Phosphatase 117 (38-126) U/L Total Protein 6.0 L (6.3-8.2) g/dL Albumin 3.5 (3.5-5.0) g/dL Calcium panel 06/27/22 06/28/22 Range/Units 20:50 12:00 Calcium 8.9 8.7 (8.4-10.2) mg/dL Albumin 3.5 (3.5-5.0) g/dL Pituitary panel 06/27/22 06/28/22 Range/Units 20:50 12:00 Sodium 127 L 127 L (137-145) mmol/L Potassium 4.5 4.2 (3.5-5.1) mmol/L Chloride 96 L 97 L (98-107) mmol/L Carbon Dioxide 25 21 L (22-30) mmol/L BUN 15 16 (7-17) mg/dL Creatinine 0.55 0.53 (0.52-1.04) mg/dL Glucose 112 H 153 H (74-99) mg/dL Calcium 8.9 8.7 (8.4-10.2) mg/dL Adrenal panel 06/27/22 06/28/22 Range/Units 20:50 12:00 Sodium 127 L 127 L (137-145) mmol/L Potassium 4.5 4.2 (3.5-5.1) mmol/L Chloride 96 L 97 L (98-107) mmol/L Carbon Dioxide 25 21 L (22-30) mmol/L BUN 15 16 (7-17) mg/dL Creatinine 0.55 0.53 (0.52-1.04) mg/dL Glucose 112 H 153 H (74-99) mg/dL Calcium 8.9 8.7 (8.4-10.2) mg/dL Total Bilirubin 0.5 (0.2-1.3) mg/dL AST 51 H (14-36) U/L ALT 18 (4-34) U/L Alkaline Phosphatase 117 (38-126) U/L Total Protein 6.0 L (6.3-8.2) g/dL Albumin 3.5 (3.5-5.0) g/dL - Imaging CT scan - abdomen: report reviewed, image reviewed CT scan - pelvis: report reviewed, image reviewed Assessment and Plan Assessment: Impression: back pain probably related to verterbral fracture, gross : hematuria probably related to a uti Plan: urine c&s, antibitoics as prescribed. She can f/u in our office for repeat ua and possible cysto.
[2022-06-29 07:09] LABS: Glucose,Whole Blood 355 mg/dL (70-110)
[2022-06-29] MEDS: lisinopriL 20 MG TAB PO SCH (08:20)
[2022-06-29] MEDS: INSULIN ASPART (NovoLOG) 100 UNIT/ML VIAL SQ SCH ×4 (08:20→23:02)
[2022-06-29] MEDS: PANTOPRAZOLE 40 MG TABLET PO SCH (08:20)
[2022-06-29] MEDS: ATORVASTATIN 40 MG TAB PO SCH (08:20)
--- NOTE | 2022-06-29 09:29 | P.CNOR ---
History of Present Illness - [facility] Consult date: 06/29/22 Requesting physician: Aden Mendoza History of present illness: History of Presenting Illness Patient is a pleasantly confused 87-year-old female who presented to the ER for altered mental status, weakness, and back pain. Patient is a poor historian. Medical history and current situation have been obtained by previous notes and chart. Patient has had increased symptoms over the past there days. She lives at home with her spouse and is normally independent. Patient denies any recent falls or trauma. She does have a medical history of DM, hyperlipidemia, HTN, and colorectal cancer. Her surgical history does include a bowel resection with colostomy and a hysterectomy. She has an orthopedic history of bilateral hip arthroplasty. Patient seen and examined this morning. She is currently sitting upright in bed. She currently is oriented to herself and knows that she is here for back pain. Patient continues to be pleasantly confused. Patient denies any back pain at this time. She is able to perform all bed exercises without difficulty and demonstrating FROM and strength in her bilateral upper and lower extremities. She denies any numbness or tingling to her bilateral lower extremities, no perineal numbness or tingling. Her urinalysis is positive for UTI. Patient is currently on IV antibiotics. Patient has been afebrile, denies and nausea/vomiting, or shortness of breath. CT scan of the abdomen and pelvis taken 06/28/22 demonstrates acute nondisplaced fracture involving the superior and left lateral endplate of the T12 vertebral body. Moderate disc degeneration changes are present throughout the thoracolumbar spine. Review of Systems Pertinent positives and negatives as discussed in HPI, a complete review of systems was performed and all other systems are negative. Physical Examination Patient is awake, alert and oriented x1. No acute distress. Well developed, hydrated and nourished. Appears stated age. They do not appear septic. On exam, the patient has no tenderness to palpation of their thoracic or lumbar spine. There is no edema or ballottement sign. Skin is warm, dry and intact without rashes or lesions. Appropriate color for ethnicity. Nailbeds pink with no cyanosis or clubbing. Upper and lower extremities are atraumatic in appearance without tenderness or deformity. No swelling or erythema. Full range of motion is noted to all joints w/o pain. Muscle strength is 5/5 bilaterally. [employer] Adf Developer strength is normal bilaterally. Dorsi/plantar flexion is normal bilaterally.Tendon function is normal. Capillary refill is less than 3 seconds in all extremities. Palpable dorsalis pedis and posterior tibial pulses. Sensation is intact bilaterally, They are intact to light touch sensation in L2 to S1 nerve distribution. Reflexes 2+ bilaterally. Cranial nerves are intact. Straight leg raise test is negative bilaterally. No clonus is noted. No tensioning signs. Compartments are soft and compressible. Assessment and Plan Lumbar spondylosis Acute T12 nondisplaced fracture UTI with AMS Multiple comorbidities At this time we do not recommend any emergent/urgent orthopedic surgical intervention. Patient may follow-up with Dr. Rose's office for further evaluation as needed. Orthopedics is signing off at this time. Please do not hesitate to contact us for any further questions. 2. Appreciate medical management 3. Pain management - Continue with Tylenol as needed. 4. GI prophylaxis - Protonix 5. DVT prophylaxis - per medicine 6. PT/OT - weightbearing as tolerated with a walker as needed. 7. Appreciate consult I reviewed and discussed this case with my attending Dr. Rose, whom has reviewed this chart and films and is in agreement with assessment and plan of care as outlined above. I have personally seen and examined the patient, performed the documentation and the assessment and plan as written. Number of minutes spent on the visit: 20m. Past Medical History Past Medical History: Diabetes Mellitus, GERD/Reflux, Hyperlipidemia, Hypertension Additional Past Medical History / Comment(s): guilian barre History of Any Multi-Drug Resistant Organisms: None Reported Past Surgical History: Hysterectomy Additional Past Surgical History / Comment(s): colostomy Past Psychological History: No Psychological Hx Reported Smoking Status: Never smoker Past Alcohol Use History: None Reported Past Drug Use History: None Reported Medications and Allergies Home Medications Medication Instructions Recorded Confirmed Type Acetaminophen [Tylenol] 1,000 mg PO Q4H PRN 07/14/21 06/27/22 History Atorvastatin [Lipitor] 40 mg PO DAILY 07/14/21 06/27/22 History Diclofenac Sodium [Voltaren] 75 mg PO BID 07/14/21 06/27/22 History Glucosamine Sulfate 500 mg PO DAILY 07/14/21 06/27/22 History Multivitamins, Thera [Multivitamin 1 tab PO DAILY 07/14/21 06/27/22 History (formulary)] Omeprazole [PriLOSEC] 20 mg PO DAILY 07/14/21 06/27/22 History metFORMIN HCL ER [Glucophage XR] 500 mg PO DAILY 07/14/21 06/27/22 History ramipriL [Ramipril] 10 mg PO DAILY 07/14/21 06/27/22 History Allergies Allergy/AdvReac Type Severity Reaction Status Date / Time No Known Allergies Allergy Verified 06/27/22 22:23 Results - Labs Labs: Abnormal Lab Results - Last 24 Hours (Table) 06/28/22 06/28/22 06/28/22 Range/Units 11:25 12:00 17:13 Sodium 127 L (137-145) mmol/L Chloride 97 L (98-107) mmol/L Carbon Dioxide 21 L (22-30) mmol/L Glucose 153 H (74-99) mg/dL POC Glucose (mg/dL) 179 H 157 H (70-110) mg/dL 06/28/22 06/29/22 Range/Units 20:40 07:08 Sodium (137-145) mmol/L Chloride (98-107) mmol/L Carbon Dioxide (22-30) mmol/L Glucose (74-99) mg/dL POC Glucose (mg/dL) 148 H 355 H (70-110) mg/dL H & H 06/27/22 Range/Units 20:50 Hgb 8.3 L (11.4-16.0) gm/dL Hct 27.9 L (34.0-46.0) % Result Diagrams: 06/27/22 20:50 06/28/22 12:00 - Diagnostic results Lumbar AP/lateral x-ray: report reviewed, image reviewed
[2022-06-29 11:05] LABS: Glucose,Whole Blood 52 mg/dL (70-110)
[2022-06-29 11:20] LABS: Glucose,Whole Blood 64 mg/dL (70-110)
[2022-06-29 11:41] LABS: Albumin 3.3 g/dL (3.8-4.9); Albumin/Globulin Ratio 1.68 (1.60-3.17); Anion Gap 10.4 mmol/L (10.00-18.00); BUN/Creat Ratio 32.27 Ratio (12.00-20.00); Blood Urea Nitrogen 13.2 mg/dL (9.0-27.0); Calcium 8.5 mg/dL (8.7-10.3); Carbon Dioxide 20.2 mmol/L (20.0-27.5); Globulin 1.9 g/dL (1.6-3.3); Magnesium 1.6 mg/dL (1.5-2.4); Non-African American GFR(CKD) 92.3 (60.0-200.0); Potassium 3.9 mmol/L (3.5-5.5); Total Bilirubin 0.3 mg/dL (0.30-1.20); Total Protein 5.2 g/dL (6.2-8.2)
[2022-06-29 11:51] LABS: Glucose,Whole Blood 61 mg/dL (70-110)
[2022-06-29 12:19] LABS: Glucose,Whole Blood 59 mg/dL (70-110)
[2022-06-29 12:34] LABS: HCT 22.8 % (37.2-46.3); HGB 6.8 g/dL (12.0-15.0); MCH 21.5 pg (27.0-32.0); MCHC 29.8 g/dL (32.0-37.0); MCV 71.9 fL (80.0-97.0); Mean Platelet Volume 9.1 fL (9.5-12.2); NRBC Per 100 WBC 0 /100 WBCS (0.0-0.0); Platelet Count 379 X 10*3/uL (140-440); RBC 3.17 X 10*6/uL (4.10-5.20); WBC 17.01 X 10*3/uL (4.50-10.00)
[2022-06-29 12:35] LABS: Acanthocytes 2+; Hypochromasia (M) 2+; Microcytosis (M) 2+
[2022-06-29 12:37] LABS: Glucose,Whole Blood 124 mg/dL (70-110)
--- NOTE | 2022-06-29 12:56 | P.PN ---
Subjective Progress Note Date: 06/29/22 Hospital course: Patient is a very pleasant 87-year-old female with a past medical history of hypertension, hyperlipidemia, diabetes mellitus, and colon cancer status post bowel resection and colostomy placement. She presented to the emergency department on 06/27/22 with a chief complaint of lower back pain. Patient underwent full evaluation in the emergency department. Labs completed and reviewed. CBC showing microcytic anemia with hemoglobin of 8.3. BMP revealing hyponatremia with sodium 127, hypochloremia with chloride of 96, and mild hyperglycemia with glucose of 112. Liver profile showing slightly elevated AST of 51. Urinalysis was contaminated but concerning for infection with greater than 182 WBCs, blood, nitrites, and RBCs. X-ray completed of lumbar spine showing scoliosis with degenerative disc changes. CT abdomen and pelvis also completed showing no evidence of obstructive uropathy or nephrolith the bases, but did reveal a stable enlarged 2.6 cm right external iliac chain lymph node, redemonstration of large left anterior abdominal wall hernia, lateral right thigh fluid collection, and in acute nondisplaced fracture involving the superior and left lateral endplate of the T12 vertebral body. Patient was admitted under our services at this time. Physical exam: Vital signs reviewed and stable. General: Nontoxic, no distress and appears stated age. Derm: Skin warm and dry, normal coloration for ethnicity. Head: Atraumatic, normocephalic and symmetric. Eyes: EOMs intact, no lid lag, and anicteric sclera Mouth: no lip lesions, mucus membranes moist Cardiovascular: regular rate and rhythm with normal S1S2, systolic murmur, positive posterior tibial pulses bilaterally, and cap refill < 2 seconds. Lungs: Respirations even, regular, and unlabored on room air. Lungs CTA reilly aterally, no rhonchi, no rales, no wheezing, and no accessory muscle usage. Abdominal: soft, nontender to palpation, no guarding, no appreciable organomegaly Ext: ROM intact. No gross muscle atrophy, no edema, no contractures Neuro: Speech clear, face symmetrical and CN II-XII grossly intact with no noted focal neuro deficits Psych: Alert and oriented to person, place and situation. Appropriate and pleasant affect. Assessment and Plan of Care: Acute cystitis with Hematuria Acute blood loss anemia secondary to hematuria Intractable lower back pain, acute nondisplaced T12 fracture Hypochloremic hyponatremia Microcytic anemia, chronic -Morning Labs completed and reviewed. CBC showing acute blood loss anemia with hemoglobin of 6.8 and leukocytosis with WBC count of 17.01. BMP revealing continued hyponatremia with sodium 127 and hypomagnesemia with magnesium of 1.6. -Orders placed for stat type and cross followed by transfusion of 1 unit PRBCs with repeat CBC post transfusion and again tomorrow morning to monitor hemogl obin closely. -Order placed for 2 g magnesium sulfate for treatment of hypomagnesemia. -Repeat BMP completed this morning showing hyponatremia unchanged with sodium of 127, normal saline infusion increased from 75 mL per hour 200 mL per hour at this time and will repeat BMP with a.m. labs to continue to monitor closely for improvement. -Urinalysis was contaminated but concerning for infection with greater than 182 WBCs, blood, nitrites, and RBCs. -Urine culture pending. We will follow up on results. -Bladder ultrasound was completed in radiology report reviewed stating nonspecific layering debris is within the urinary bladder. -Urology consulted and reviewed documentation in chart stating hematuria probably related to UTI and recommend patient follow up in their office for repeat UA and possible cystoscopy. -Continue bladder management with close monitoring of post void residuals. -Orthospine surgery was consulted for T12 fracture, discussed plan of care with orthopedic RATING OFFICER stating they have evaluated patient and do not recommend urgent orthopedic surgical intervention, recommending PT/OT with weightbearing as tolerated with walker and outpatient follow-up in their office to discuss further options. -Continue Fall precautions. Diabetes mellitus with episode of hypoglycemia -Patient had episode of hypoglycemia this morning. Per RN patient was given morning insulin 15 units NovoLog based upon blood glucose levels, however despite breakfast being at bedside patient reportedly did not eat which resulted in hypoglycemic event. Patient was given juice/soda along with lunch and had no further episodes of hypoglycemia reported. -Continue with glycemic protocol and NovoLog sliding scale. Blood glucose levels to be monitored 5 times daily... With meals, at bedtime, and at 2 AM. CODE STATUS: Full code DVT prophylaxis: SCDs Discussed with: Patient, orthospine surgery RATING OFFICER and RN Anticipated discharge date: Clinical course to determine Anticipated discharge place: Home Patient was seen independently by Nurse Pracitioner. This document was prepared using [employer] dictation software. Please allow for errors in public health inspector, while rare they do occur. This patient was seen independently by Aden Mendoza NP, I agree with documentation as above with the following additions: None. Objective - Vital Signs Vital signs: Vital Signs Temp 98.4 F 06/29/22 07:07 Pulse 95 06/29/22 07:07 Resp 18 06/29/22 07:07 BP 198/79 06/29/22 07:07 Pulse Ox 92 L 06/29/22 07:07 FiO2 Intake & Output 06/28/22 06/29/22 06/29/22 18:59 06:59 18:59 Intake Total 1590 Output Total 399 Balance -399 1590 Intake: Intake, IV Titration 1050 Amount Sodium Chloride 0.9% 1, 1000 000 ml @ 100 mls/hr IV . Q10H [facility] Rx#:[id number] cefTRIAXone 1 gm In 50 Sodium Chloride 0.9% 50 ml @ 100 mls/hr IVPB Q24H [facility] Rx#:[id number] Oral 540 Output: Post Void Residual 399 Other: Voiding Method Bedside Commode Bedside Commode # Voids 1 6 1 - Labs CBC & Chem 7: 07/01/22 11:03 07/01/22 11:03 Labs: Abnormal Lab Results - Last 24 Hours (Table) 06/28/22 06/28/22 06/28/22 Range/Units 11:25 12:00 17:13 Sodium 127 L (137-145) mmol/L Chloride 97 L (98-107) mmol/L Carbon Dioxide 21 L (22-30) mmol/L Glucose 153 H (74-99) mg/dL POC Glucose (mg/dL) 179 H 157 H (70-110) mg/dL 06/28/22 06/29/22 Range/Units 20:40 07:08 Sodium (137-145) mmol/L Chloride (98-107) mmol/L Carbon Dioxide (22-30) mmol/L Glucose (74-99) mg/dL POC Glucose (mg/dL) 148 H 355 H (70-110) mg/dL
[2022-06-29] MEDS: amLODIPine 5 MG TAB PO SCH (13:12)
--- NOTE | 2022-06-29 17:00 | CDI ---
Documentation Clarification Form Date: 06/29/2022 4:33:00 PM From: Ingris Loredo RN, CCDS Admit Date: 06/27/2022 11:16:00 PM Patient Name: Tammy Alba Visit Number: [id number] Discharge Date: ATTENTION: The Clinical Documentation Specialists (CDI) and [facility] Coding Staff appreciate your assistance in clarifying documentation. Please respond to the clarification below the line at the bottom and electronically sign. The CDI & [facility] Coding staff will review the response and follow-up if needed. Please note: Queries are made part of the Legal Health Record. If you have any questions, please contact the author of this message via ITS. Dr. Luc Bates Your patient has the documented symptom of Altered Mental Status the nursing neurological assessment and Ortho consult 06/29/22. Additional clarification regarding the etiology/cause of this symptom is requested. 06/28 Ortho consult: She currently is oriented to herself and knows that she is here for back pain. Patient continues to be pleasantly confused. Patient is awake, alert and orientated X1. History/Risk Factors: DM, HTN, Hyperlipidemia Clinical Indicators: 87-year-old female present with complaints of back pain. She was found to have endplate fracture of T12 and urinary tract infection with hematuria. VS 180 /85 92 18 98.2 Labs: 06/27 WBC 10.5 HGB 8.3, Na+ 127 BUN 15 CR 0.55 GFR 84 UA Leukocyte Esterase Large Labs: 06/29 WBC 17.1 HGB 6.8 HCT 22.8, Na+ 127, Treatment: Rocephin 1 GM IVPB Q 24 HRS, .9 NS @ 100 ML/HR IV 06/28-06/29 Please clarify the etiology of the symptom of Altered Mental Status: [ x ] Metabolic Encephalopathy due to UTI [ ] Dementia (if know, specify Type and if with/without Behavioral Disturbance) [ ] Other condition (please specify) [ ] Unable to determine (Template Last Revised: March 2020) MTDD
[2022-06-29 17:09] LABS: Glucose,Whole Blood 128 mg/dL (70-110)
[2022-06-29] MEDS ORDERED: DEXTROSE 50% SYRINGE 50 ML IVP PRN ×2 (18:16)
[2022-06-29 21:05] LABS: Glucose,Whole Blood 118 mg/dL (70-110)
[2022-06-29] MEDS: MAGNESIUM SULFATE-D5W PMX 1 GM in DEXTROSE/WATER 1 100ML.BAG IVPB SCH (21:28)
[2022-06-30 00:12] LABS: Anisocytosis Slight; Basophils % (A) 0 %; Eosinophils % (A) 0 %; HCT 23.3 % (34.0-46.0); HGB 7.2 gm/dL (11.4-16.0); Hypochromasia Marked; Lymphocytes # (A) 1.2 k/uL (1.0-4.8); Lymphocytes % (A) 11 %; MCH 22.3 pg (25.0-35.0); MCHC 30.9 g/dL (31.0-37.0); MCV 72.2 fL (80.0-100.0); Mean Platelet Volume 7.3; Microcytosis Moderate; Monocytes # (A) 0.5 k/uL (0-1.0); Monocytes % (A) 5 %; Neutrophils # (A) 8.6 k/uL (1.3-7.7); Neutrophils % (A) 82 %; Platelet Count 317 k/uL (150-450); Poikilocytosis Slight; RBC 3.23 m/uL (3.80-5.40); RDW 17.7 % (11.5-15.5); WBC 10.5 k/uL (3.8-10.6)
[2022-06-30] MEDS: MAGNESIUM SULFATE-D5W PMX 1 GM in DEXTROSE/WATER 1 100ML.BAG IVPB SCH (00:12)
[2022-06-30 02:27] LABS: Glucose,Whole Blood 141 mg/dL (70-110)
[2022-06-30] MEDS: ACETAMINOPHEN TAB 500 MG TAB PO PRN ×2 (05:18→22:26)
[2022-06-30 07:22] LABS: Glucose,Whole Blood 139 mg/dL (70-110)
[2022-06-30] MEDS: INSULIN ASPART (NovoLOG) 100 UNIT/ML VIAL SQ SCH ×3 (09:14→17:14)
[2022-06-30] MEDS: lisinopriL 20 MG TAB PO SCH (09:15)
[2022-06-30] MEDS: ATORVASTATIN 40 MG TAB PO SCH (09:15)
[2022-06-30] MEDS: PANTOPRAZOLE 40 MG TABLET PO SCH (09:15)
[2022-06-30] MEDS: amLODIPine 5 MG TAB PO SCH (09:16)
[2022-06-30 09:45] LABS: HCT 24.6 % (37.2-46.3); HGB 7.3 g/dL (12.0-15.0); MCH 21.9 pg (27.0-32.0); MCHC 29.7 g/dL (32.0-37.0); MCV 73.7 fL (80.0-97.0); Mean Platelet Volume 9.3 fL (9.5-12.2); NRBC Per 100 WBC 0 /100 WBCS (0.0-0.0); Platelet Count 335 X 10*3/uL (140-440); RBC 3.34 X 10*6/uL (4.10-5.20); RDW 18.2 % (11.5-14.5); WBC 10.86 X 10*3/uL (4.50-10.00)
[2022-06-30 11:07] LABS: African American GFR (CKD) 100.2 (60.0-200.0); Albumin 3.2 g/dL (3.8-4.9); Albumin/Globulin Ratio 1.68 (1.60-3.17); Calcium 8.5 mg/dL (8.7-10.3); Globulin 1.9 g/dL (1.6-3.3); Non-African American GFR(CKD) 86.4 (60.0-200.0); Total Bilirubin 0.3 mg/dL (0.30-1.20); Total Protein 5.1 g/dL (6.2-8.2)
[2022-06-30 11:28] LABS: Glucose,Whole Blood 123 mg/dL (70-110)
--- NOTE | 2022-06-30 13:56 | P.PN ---
Subjective Progress Note Date: 06/30/22 Hospital course: Patient is a very pleasant 87-year-old female with a past medical history of hypertension, hyperlipidemia, diabetes mellitus, and colon cancer status post bowel resection and colostomy placement. She presented to the emergency department on 06/27/22 with a chief complaint of lower back pain. Patient underwent full evaluation in the emergency department. Labs completed and reviewed. CBC showing microcytic anemia with hemoglobin of 8.3. BMP revealing hyponatremia with sodium 127, hypochloremia with chloride of 96, and mild hyperglycemia with glucose of 112. Liver profile showing slightly elevated AST of 51. Urinalysis was contaminated but concerning for infection with greater than 182 WBCs, blood, nitrites, and RBCs. X-ray completed of lumbar spine showing scoliosis with degenerative disc changes. CT abdomen and pelvis also completed showing no evidence of obstructive uropathy or nephrolith the bases, but did reveal a stable enlarged 2.6 cm right external iliac chain lymph node, redemonstration of large left anterior abdominal wall hernia, lateral right thigh fluid collection, and in acute nondisplaced fracture involving the superior and left lateral endplate of the T12 vertebral body. Patient was admitted under our services at this time. Physical exam: Vital signs reviewed and stable. General: Nontoxic, no distress and appears stated age. Derm: Skin warm and dry, normal coloration for ethnicity. Head: Atraumatic, normocephalic and symmetric. Eyes: EOMs intact, no lid lag, and anicteric sclera Mouth: no lip lesions, mucus membranes moist Cardiovascular: regular rate and rhythm with normal S1S2, systolic murmur, positive posterior tibial pulses bilaterally, and cap refill < 2 seconds. Lungs: Respirations even, regular, and unlabored on room air. Lungs CTA reilly aterally, no rhonchi, no rales, no wheezing, and no accessory muscle usage. Abdominal: soft, nontender to palpation, no guarding, no appreciable organomegaly Ext: ROM intact. No gross muscle atrophy, no edema, no contractures Neuro: Speech clear, face symmetrical and CN II-XII grossly intact with no noted focal neuro deficits Psych: Alert and oriented to person, place and situation. Appropriate and pleasant affect. Assessment and Plan of Care: Acute cystitis with Hematuria Acute blood loss anemia secondary to hematuria Intractable lower back pain, acute nondisplaced T12 fracture Hypochloremic hyponatremia Microcytic anemia, chronic -Status post transfusion of 1 unit PRBCs, hemoglobin stable. -Morning Labs completed and reviewed. CBC revealing stable hemoglobin of 7.3 and mild leukocytosis with WBC count of 10.86. BMP revealing mild improvement of hyponatremia with sodium increasing from 127-129 and hypomagnesemia resolved with magnesium increasing from 1.6-2.0 status post replacement. -Family visiting at bedside, patient and RN does report patient having less urinary frequency. -Urine culture pending. -Patient to continue with IV antibiotics Rocephin 1 g daily pending urine culture results. -Bladder ultrasound was completed in radiology report reviewed stating nonspecific layering debris is within the urinary bladder. -Urology consulted and reviewed documentation in chart stating hematuria probably related to UTI and recommend patient follow up in their office for repeat UA and possible cystoscopy. -Continue bladder management with close monitoring of post void residuals. -Orthospine surgery was consulted for T12 fracture, discussed plan of care with orthopedic CHARTING CLERK stating they have evaluated patient and do not recommend urgent orthopedic surgical intervention, recommending PT/OT with weightbearing as tolerated with walker and outpatient follow-up in their office to discuss further options. -Continue Fall precautions. Diabetes mellitus with isolated episode of hypoglycemia -Patient had episode of hypoglycemia this morning. Per RN patient was given morning insulin 15 units NovoLog based upon blood glucose levels, however despite breakfast being at bedside patient reportedly did not eat which resulted in hypoglycemic event. Patient was given juice/soda along with lunch and had no further episodes of hypoglycemia reported. -Continue with glycemic protocol and NovoLog sliding scale. Blood glucose levels to be monitored 5 times daily... With meals, at bedtime, and at 2 AM. CODE STATUS: Full code DVT prophylaxis: SCDs Discussed with: Patient, orthospine surgery CHARTING CLERK and RN Anticipated discharge date: Clinical course to determine Anticipated discharge place: Home Patient was seen independently by Nurse Pracitioner. This document was prepared using [employer] dictation software. Please allow for errors in occupational therapy director, while rare they do occur. This patient was seen independently by Aden Mendoza CHARTING CLERK, I agree with documentation as above with the following additions: None. Objective - Vital Signs Vital signs: Vital Signs Temp 98.5 F 06/30/22 07:15 Pulse 82 06/30/22 07:15 Resp 16 06/30/22 07:15 BP 167/65 06/30/22 07:15 Pulse Ox 97 06/30/22 07:15 FiO2 Intake & Output 06/29/22 06/30/22 06/30/22 18:59 06:59 18:59 Intake Total 0 1784 Balance 0 1784 Intake: Intake, IV Titration 1500 Amount Magnesium Sulfate-D5w Pmx 200 1 gm In Dextrose/Water 1 100ml.bag @ 100 mls/hr IVPB Q1H [facility] Rx#: [id number] Sodium Chloride 0.9% 1, 1200 000 ml @ 100 mls/hr IV . Q10H [facility] Rx#:[id number] cefTRIAXone 1 gm In 100 Sodium Chloride 0.9% 50 ml @ 100 mls/hr IVPB Q24H [facility] Rx#:[id number] Blood Product 0 284 Rc Pheresis As-3 Unit 0 284 [id number] Other: Voiding Method Bedside Commode Bedside Commode # Voids 1 2 1 - Labs CBC & Chem 7: 07/01/22 11:03 07/01/22 11:03 Labs: Abnormal Lab Results - Last 24 Hours (Table) 06/29/22 06/29/22 06/29/22 Range/Units 07:31 07:31 11:04 WBC 17.01 H (4.50-10.00) X 10*3/uL RBC 3.17 L (4.10-5.20) X 10*6/uL Hgb 6.8 L* (12.0-15.0) g/dL Hct 22.8 L (37.2-46.3) % MCV 71.9 L (80.0-97.0) fL MCH 21.5 L (27.0-32.0) pg MCHC 29.8 L (32.0-37.0) g/dL RDW 18.0 H (11.5-14.5) % MPV 9.1 L (9.5-12.2) fL Neutrophils # (1.3-7.7) k/uL Sodium 127 L (135-145) mmol/L Creatinine 0.4 L (0.6-1.5) mg/dL BUN/Creatinine Ratio 32.27 H (12.00-20.00) Ratio Glucose 129 H (70-110) mg/dL POC Glucose (mg/dL) 52 L (70-110) mg/dL Calcium 8.5 L (8.7-10.3) mg/dL AST 53 H (13-35) U/L Total Protein 5.2 L (6.2-8.2) g/dL Albumin 3.3 L (3.8-4.9) g/dL Crossmatch 06/29/22 06/29/22 06/29/22 Range/Units 11:19 11:49 12:18 WBC (4.50-10.00) X 10*3/uL RBC (4.10-5.20) X 10*6/uL Hgb (12.0-15.0) g/dL Hct (37.2-46.3) % MCV (80.0-97.0) fL MCH (27.0-32.0) pg MCHC (32.0-37.0) g/dL RDW (11.5-14.5) % MPV (9.5-12.2) fL Neutrophils # (1.3-7.7) k/uL Sodium (135-145) mmol/L Creatinine (0.6-1.5) mg/dL BUN/Creatinine Ratio (12.00-20.00) Ratio Glucose (70-110) mg/dL POC Glucose (mg/dL) 64 L 61 L 59 L (70-110) mg/dL Calcium (8.7-10.3) mg/dL AST (13-35) U/L Total Protein (6.2-8.2) g/dL Albumin (3.8-4.9) g/dL Crossmatch 06/29/22 06/29/22 06/29/22 Range/Units 12:36 13:09 17:08 WBC (4.50-10.00) X 10*3/uL RBC (4.10-5.20) X 10*6/uL Hgb (12.0-15.0) g/dL Hct (37.2-46.3) % MCV (80.0-97.0) fL MCH (27.0-32.0) pg MCHC (32.0-37.0) g/dL RDW (11.5-14.5) % MPV (9.5-12.2) fL Neutrophils # (1.3-7.7) k/uL Sodium (135-145) mmol/L Creatinine (0.6-1.5) mg/dL BUN/Creatinine Ratio (12.00-20.00) Ratio Glucose (70-110) mg/dL POC Glucose (mg/dL) 124 H 128 H (70-110) mg/dL Calcium (8.7-10.3) mg/dL AST (13-35) U/L Total Protein (6.2-8.2) g/dL Albumin (3.8-4.9) g/dL Crossmatch See Detail 06/29/22 06/29/22 06/30/22 Range/Units 21:01 23:28 02:25 WBC (4.50-10.00) X 10*3/uL RBC 3.23 L (4.10-5.20) X 10*6/uL Hgb 7.2 L (12.0-15.0) g/dL Hct 23.3 L (37.2-46.3) % MCV 72.2 L (80.0-97.0) fL MCH 22.3 L (27.0-32.0) pg MCHC 30.9 L (32.0-37.0) g/dL RDW 17.7 H (11.5-14.5) % MPV (9.5-12.2) fL Neutrophils # 8.6 H (1.3-7.7) k/uL Sodium (135-145) mmol/L Creatinine (0.6-1.5) mg/dL BUN/Creatinine Ratio (12.00-20.00) Ratio Glucose (70-110) mg/dL POC Glucose (mg/dL) 118 H 141 H (70-110) mg/dL Calcium (8.7-10.3) mg/dL AST (13-35) U/L Total Protein (6.2-8.2) g/dL Albumin (3.8-4.9) g/dL Crossmatch 06/30/22 Range/Units 07:17 WBC (4.50-10.00) X 10*3/uL RBC (4.10-5.20) X 10*6/uL Hgb (12.0-15.0) g/dL Hct (37.2-46.3) % MCV (80.0-97.0) fL MCH (27.0-32.0) pg MCHC (32.0-37.0) g/dL RDW (11.5-14.5) % MPV (9.5-12.2) fL Neutrophils # (1.3-7.7) k/uL Sodium (135-145) mmol/L Creatinine (0.6-1.5) mg/dL BUN/Creatinine Ratio (12.00-20.00) Ratio Glucose (70-110) mg/dL POC Glucose (mg/dL) 139 H (70-110) mg/dL Calcium (8.7-10.3) mg/dL AST (13-35) U/L Total Protein (6.2-8.2) g/dL Albumin (3.8-4.9) g/dL Crossmatch Microbiology - Last 24 Hours (Table) 06/29/22 15:50 Urine Culture - Preliminary Urine,Clean Catch
[2022-06-30] MEDS: HYDROcodone/APAP 5-325MG 1 EACH TAB PO PRN (14:59)
[2022-06-30 17:08] LABS: Glucose,Whole Blood 120 mg/dL (70-110)
[2022-06-30 21:01] LABS: Glucose,Whole Blood 130 mg/dL (70-110)
[2022-07-01] MEDS: INSULIN ASPART (NovoLOG) 100 UNIT/ML VIAL SQ SCH ×3 (00:17→13:19)
[2022-07-01 02:53] LABS: Glucose,Whole Blood 146 mg/dL (70-110)
[2022-07-01] MEDS: ACETAMINOPHEN TAB 500 MG TAB PO PRN ×3 (03:02→14:00)
[2022-07-01] MEDS ORDERED: LABETALOL 200 MG TAB PO STA (03:21)
[2022-07-01 03:40] VITALS: RESP 16
[2022-07-01] MEDS: HYDROcodone/APAP 5-325MG 1 EACH TAB PO PRN (03:50)
[2022-07-01 07:38] LABS: Glucose,Whole Blood 154 mg/dL (70-110)
[2022-07-01 07:53] VITALS: TEMP 97.6
[2022-07-01] MEDS: amLODIPine 5 MG TAB PO SCH (08:22)
[2022-07-01] MEDS: lisinopriL 20 MG TAB PO SCH (08:22)
[2022-07-01] MEDS: ATORVASTATIN 40 MG TAB PO SCH (08:22)
[2022-07-01] MEDS: PANTOPRAZOLE 40 MG TABLET PO SCH (08:22)
[2022-07-01 11:28] LABS: Glucose,Whole Blood 159 mg/dL (70-110)
[2022-07-01 12:00] LABS: Anisocytosis Slight; HCT 27.2 % (34.0-46.0); HGB 8.3 gm/dL (11.4-16.0); Hypochromasia Marked; MCH 22.5 pg (25.0-35.0); MCHC 30.7 g/dL (31.0-37.0); MCV 73.2 fL (80.0-100.0); Mean Platelet Volume 7.3; Microcytosis Moderate; Platelet Count 368 k/uL (150-450); RBC 3.71 m/uL (3.80-5.40); RDW 18.2 % (11.5-15.5)
[2022-07-01 12:02] VITALS: BP 184/70; PULSE 67
[2022-07-01 12:08] LABS: ALT 21 U/L (4-34); AST 51 U/L (14-36); African American GFR (CKD) >90 (>60 ml/min/1.73 sqM); Albumin 3.2 g/dL (3.5-5.0); Albumin/Globulin Ratio 1.3; Alkaline Phosphatase 100 U/L (38-126); Anion Gap 9 mmol/L; Blood Urea Nitrogen 12 mg/dL (7-17); Calcium 8.5 mg/dL (8.4-10.2); Carbon Dioxide 21 mmol/L (22-30); Chloride 99 mmol/L (98-107); Globulin 2.4 g/dL; Glucose 127 mg/dL (74-99); Non-African American GFR(CKD) 88 (>60 ml/min/1.73 sqM); Potassium 4.2 mmol/L (3.5-5.1); Sodium 129 mmol/L (137-145); Total Bilirubin 0.3 mg/dL (0.2-1.3); Total Protein 5.6 g/dL (6.3-8.2)
--- NOTE | 2022-07-01 13:58 | P.DS ---
Providers Date of admission: 06/27/22 23:16 Expected date of discharge: 07/01/22 Attending physician: Tianna Morin MD Consults: 06/28/22 12:02 Consult Physician Routine Consulting Provider: Theodore Damon Consult Reason/Comments: hematuria RN reports pt urinating straight blood hx colon cancer US ordered Do you want consulting provider notified?: Yes 06/28/22 19:04 Consult Physician Routine Consulting Provider: Salvador Rose Consult Reason/Comments: intractable back pain, acute nondisplaced fracture of T12 Do you want consulting provider notified?: Yes, Notify in am Primary care physician: Santiago Green MD Hospital Course: Discharge Diagnosis: Acute cystitis with Hematuria, urine culture was negative but obtained greater than 24 hours after patient began antibiotics. Patient received 3 days of IV antibiotics with Rocephin and being discharged home on an additional 2 days of Keflex to total a 5 day treatment course of antibiotics. Patient was also found to have recurrent episodes of urinary retention greater than 600 mL. A Leyva catheter was placed. A bladder ultrasound was completed revealing. Urinary retention, Leyva catheter was placed. Patient following up outpatient with urologist. Acute blood loss anemia secondary to hematuria. Status post transfusion of 1 unit PRBCs and hemoglobin is stable upon discharge at 8.3 and hematuria significantly improved. Intractable lower back pain, acute nondisplaced T12 fracture. Patient was evaluated by Dr. abraham surgery team recommending outpatient follow-up in the office. Hypochloremic hyponatremia, improved Hypertension, patient started on amlodipine 5 mg daily in addition to daily medication regimen with ramipril 10 mg daily. Blood pressure upon discharge 149/73. Diabetes mellitus with isolated episode of hypoglycemia, resolved. Blood glucose level stable. Isolated episode of hypoglycemia secondary to patient receiving insulin and then not eating breakfast. Resolved with eating. Patient to continue with daily medication regimen with metformin upon discharge. Metabolic encephalopathy secondary to UTI, improved. Patient at baseline mentation alert to person and place only. Abdominal wall hernia, recommend outpatient follow-up with general surgeon. Hospital Course: Patient is a very pleasant 87-year-old female with a past medical history of hypertension, hyperlipidemia, diabetes mellitus, and colon cancer status post bowel resection and colostomy placement. She presented to the emergency department on 06/27/22 with a chief complaint of lower back pain. Patient underwent full evaluation in the emergency department. Labs completed and reviewed. CBC showing microcytic anemia with hemoglobin of 8.3. BMP revealing hyponatremia with sodium 127, hypochloremia with chloride of 96, and mild hyperglycemia with glucose of 112. Liver profile showing slightly elevated AST of 51. Urinalysis was contaminated but concerning for infection with greater than 182 WBCs, blood, nitrites, and RBCs. X-ray completed of lumbar spine showing scoliosis with degenerative disc changes. CT abdomen and pelvis also completed showing no evidence of obstructive uropathy or nephrolithiss, but did reveal a stable enlarged 2.6 cm right external iliac chain lymph node, redemonstration of large left anterior abdominal wall hernia, lateral right thigh fluid collection, and in acute nondisplaced fracture involving the superior and left lateral endplate of the T12 vertebral body. Patient was admitted under our services at this time. Consults placed to both urologist and orthospine surgery team. Orthospine surgery was consulted for T12 fracture, discussed plan of care with orthopedic INTERNET ARCHITECT stating they have evaluated patient and do not recommend urgent orthopedic surgical intervention, recommending PT/OT with weightbearing as tolerated with walker and outpatient follow-up in their office to discuss further options. A Bladder ultrasound was completed and radiology report reviewed stating nonspecific layering debris is within the uri nary bladder. Urology consulted and evaluated patient stating hematuria probably related to UTI and urinary retention and recommend patient follow up in their office for repeat UA and possible cystoscopy. Urine culture was negative but obtained greater than 24 hours after patient began antibiotics. During hospitalization patient was also noted to have acute on chronic anemia secondary to blood loss resulting from hematuria. Hemoglobin dropped to 6.9 requiring transfusion of 1 unit PRBCs. Hematuria improving and hemoglobin also improving. Hemoglobin on day of discharge 8.3. Patient received 3 days of IV antibiotics with Rocephin and being discharged home on an additional 2 days of Keflex to total a 5 day treatment course of antibiotics. Patient was also found to have recurrent episodes of urinary retention greater than 600 mL. A Leyva catheter was placed. Medically, patient is stable for discharge at this time. Patient being discharged home with Leyva catheter in place along with an additional 3 days of oral antibiotics with Keflex to total of 5 day treatment course for her cystitis. Discharge instructions reviewed with patient's at bedside and instructed the patient will need to follow up outpatient with her PCP, urologist in 1 week, and orthospine surgeon. Patient medically stable for discharge home in care of her and home care arrangements have been made through [facility]. Physical exam: Vital signs reviewed and stable. General: Nontoxic, no distress and appears stated age. Derm: Skin warm and dry, normal coloration for ethnicity. Head: Atraumatic, normocephalic and symmetric. Eyes: EOMs intact, no lid lag, and anicteric sclera Mouth: no lip lesions, mucus membranes moist Cardiovascular: regular rate and rhythm with normal S1S2, systolic murmur, positive posterior tibial pulses bilaterally, and cap refill < 2 seconds. Lungs: Respirations even, regular, and unlabored on room air. Lungs CTA bilaterally, no rhonchi, no rales, no wheezing, and no accessory muscle usage. Abdominal: soft, nontender to palpation, no guarding, no appreciable organomegaly Ext: ROM intact. No gross muscle atrophy, no edema, no contractures Neuro: Speech clear, face symmetrical and CN II-XII grossly intact with no noted focal neuro deficits Psych: Alert and oriented to person, place, confused to time and situation. Appropriate and pleasant affect. A total of minutes of time were spent preparing this complex discharge summary. Pt was discharged on 07/01/22 at 1:17 PM. Patient was seen independently by Nurse Practitioner. This document was prepared using [employer] dictation software. Please allow for errors in veneer department manager while rare they do occur. Patient Condition at Discharge: Stable Plan - Discharge Summary New Discharge Prescriptions: New RX: amLODIPine [Norvasc] 5 mg PO DAILY 30 Days #30 tab Continue RX: metFORMIN HCL ER [Glucophage XR] 500 mg PO DAILY RX: Atorvastatin [Lipitor] 40 mg PO DAILY RX: Multivitamins, Thera [Multivitamin (formulary)] 1 tab PO DAILY RX: Glucosamine Sulfate 500 mg PO DAILY RX: Acetaminophen [Tylenol] 1,000 mg PO Q4H PRN PRN Reason: Pain Or Fever > 100.5 RX: Omeprazole [PriLOSEC] 20 mg PO DAILY RX: ramipriL [Ramipril] 10 mg PO DAILY RX: Diclofenac Sodium [Voltaren] 75 mg PO BID Discharge Medication List RX: Acetaminophen [Tylenol] 1,000 mg PO Q4H PRN 07/14/21 [History] RX: Atorvastatin [Lipitor] 40 mg PO DAILY 07/14/21 [History] RX: Diclofenac Sodium [Voltaren] 75 mg PO BID 07/14/21 [History] RX: Glucosamine Sulfate 500 mg PO DAILY 07/14/21 [History] RX: Multivitamins, Thera [Multivitamin (formulary)] 1 tab PO DAILY 07/14/21 [History] RX: Omeprazole [PriLOSEC] 20 mg PO DAILY 07/14/21 [History] RX: metFORMIN HCL ER [Glucophage XR] 500 mg PO DAILY 07/14/21 [History] RX: ramipriL [Ramipril] 10 mg PO DAILY 07/14/21 [History] RX: amLODIPine [Norvasc] 5 mg PO DAILY 30 Days #30 tab 07/01/22 [Rx] Follow up Appointment(s)/Referral(s): Santiago Green MD [Primary Care Provider] - [facility] Woodrow Kirkland MD [STAFF PHYSICIAN] - 1 Week Activity/Diet/Wound Care/Special Instructions: Activity: As tolerated. Requires supervision. Diet: Heart healthy and carb consistent diet. Avoid salts, or foods with hidden salts such as canned or boxed foods and frozen dinners. Extra salt makes your heart work harder and traps the fluid in your body for longer. Special Instructions: Take all of your medications as directed and remember to keep all of your doctor's appointments and follow-up as needed. Because you experienced recurrent episodes of urinary retention, a Leyva cat heter was placed. As discussed, it is important to call urologist office first thing Sunday morning to schedule follow-up appointment for the recommended cystoscopy secondary to continued urinary retention and hematuria. If you experience any difficulties with drainage of a urinary catheter it is very important to seek help immediately. You can do so by calling urologist office to seek advice on intervention or you may return to the emergency department for evaluation. Thank you for allowing us to participate in your care, it was truly a pleasure having you for our patient!!! Discharge Disposition: HOME WITH HOME HEALTH SERVICES
== END 2022-07-01 15:37 | disposition home health service (06) | DRG 689 ==
LOC: EC 17:56 → 5NMEDONC 23:16
PROVIDERS: ADMIT Internal Medicine; ATTEND Internal Medicine
PROC: 30233N1 Transfusion of Nonautologous Red Blood Cells into Peripheral Vein, Percutaneous Approach (ICD-10-PCS; principal; 2022-06-29)
DX: N30.01 Acute cystitis with hematuria (principal); G93.41 Metabolic encephalopathy; S22.081A Stable burst fracture of T11-T12 vertebra, initial encounter for closed fracture; E87.1 Hypo-osmolality and hyponatremia; D62 Acute posthemorrhagic anemia; E11.649 Type 2 diabetes mellitus with hypoglycemia without coma; D63.8 Anemia in other chronic diseases classified elsewhere; E87.8 Other disorders of electrolyte and fluid balance, not elsewhere classified; E11.65 Type 2 diabetes mellitus with hyperglycemia; I10 Essential (primary) hypertension; D50.9 Iron deficiency anemia, unspecified; M51.36 Other intervertebral disc degeneration, lumbar region; G89.29 Other chronic pain; M41.9 Scoliosis, unspecified; E78.5 Hyperlipidemia, unspecified; R26.2 Difficulty in walking, not elsewhere classified; Z96.643 Presence of artificial hip joint, bilateral; M47.816 Spondylosis without myelopathy or radiculopathy, lumbar region; R33.9 Retention of urine, unspecified; R74.01 Elevation of levels of liver transaminase levels; K43.9 Ventral hernia without obstruction or gangrene; E83.42 Hypomagnesemia; R35.0 Frequency of micturition; Z79.899 Other long term (current) drug therapy; Z79.84 Long term (current) use of oral hypoglycemic drugs; Z93.3 Colostomy status; Z90.49 Acquired absence of other specified parts of digestive tract; Z85.048 Personal history of other malignant neoplasm of rectum, rectosigmoid junction, and anus
CPT/HCPCS: 36415; 72100; 74176; 76857; 80048; 80053; 81001; 83735; 85025; 85027; 86850; 86900; 86901; 86920; 87086; 96361; 96365; 96372; 96375; 99285